=== PATIENT | male | born 1985 | race African-American/Black ===

== ENCOUNTER 2016-08-05 08:44 | Emergency (ER) | payer SELFPAY ==
[2016-08-05 08:49] VITALS: BP 144/91; PULSE 93; TEMP 97.6; BMI 24.3
[2016-08-05] MEDS ORDERED: IBUPROFEN 600 MG TABLET (FP) PO ONE ×2 (09:29→09:31)
--- NOTE | 2016-08-05 09:57 | PDOC ---
History of Present Illness - General Chief Complaint: Pain, Acute Stated Complaint: ARM INJURY Time Seen by Provider: 08/05/16 09:23 Past History - Past Medical History Allergies/Adverse Reactions: Allergies Allergy/AdvReac Type Severity Reaction Status Date / Time No Known Allergies Allergy Verified 08/05/16 08:47 Home Medications: Ambulatory Orders No Home Medications 09/17/11 Asthma: No Cardiac Disorders: No COPD: No Diabetes: No GI Disorders: No Disorders: No HTN: No Kidney Stones: No Suicide Attempt (Hx): No Seizures: No Other medical history: denies. - Surgical History Abdominal Surgery: No Appendectomy: No Cardiac Surgery: No Cholecystectomy: No Lung Surgery: No Neurologic Surgery: No Orthopedic Surgery: No - Reproductive History Testicular Surgery: No - Psycho/Social/Smoking Cessation Hx Anxiety: No Suicidal Ideation: No Smoking History: Current every day smoker Number of Cigarettes Smoked Daily: 10 Information on smoking cessation initiated: No 'Breaking Loose' booklet given: 09/16/11 Hx Alcohol Use: No Drug/Substance Use Hx: No Substance Use Type: None *Physical Exam - Vital Signs Last Vital Signs Temp Pulse Resp BP Pulse Ox 97.6 F 93 H 18 144/91 99 08/05/16 08:47 08/05/16 08:47 08/05/16 08:47 08/05/16 08:47 08/05/16 08:47 ED Treatment Course - Medications Given in the ED: ED Medications Discontinued Medications Generic Name Dose Route Start Last Admin Trade Name Binuq PRN Reason Stop Dose Admin Ibuprofen 600 mg 08/05/16 09:29 08/05/16 09:34 Motrin - PO 08/05/16 09:30 600 mg ONCE ONE Administration
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
== END 2016-08-05 11:07 | disposition home or self-care (01) ==
LOC: JERFT 08:44
DX: S42.401A Unspecified fracture of lower end of right humerus, initial encounter for closed fracture (principal); V18.0XXA Pedal cycle driver injured in noncollision transport accident in nontraffic accident, initial encounter; Y92.410 Unspecified street and highway as the place of occurrence of the external cause; Y93.55 Activity, bike riding; Y99.8 Other external cause status
CPT/HCPCS: 73060-TC-RT; 73070-TC-RT; 73090-TC-RT; 99281-25

== ENCOUNTER 2018-09-15 16:42 | Inpatient (IN) | payer OTHER ==
[2018-09-15 21:04] VITALS: BMI 27.6
--- NOTE | 2018-09-16 01:09 | HP ---
CIWA Score Nausea/Vomitin Muscle Tremors: 2 Anxiety: 2 Agitation: 1-Slight > Activity Paroxysmal Sweats: 1-Minimal Palms Moist Orientation: 0-Oriented Tacttile Disturbances: 1-Very Mild Itch/Numbness Auditory Disturbances: 1-Very Mild Visual Disturbances: 2-Mild Sensitivity Headache: 2-Mild CIWA-Ar Total Score: 14 - Admission Criteria OASAS Guidelines: Admission for Medically Managed Detox: Requires at least one of the followin. CIWA greater than 12 2. Seizures within the past 24 hours 3. Delirium tremens within the past 24 hours 4. Hallucinations within the past 24 hours 5. Acute intervention needed for co occurring medical disorder 6. Acute intervention needed for co occurring psychiatric disorder 7. Severe withdrawal that cannot be handled at a lower level of care (continued vomiting, continued diarrhea, abnormal vital signs) requiring intravenous medication and/or fluids 8. Admission ROS S - HPI Chief Complaint: DEPENDENT ON ETOH ONLY Allergies/Adverse Reactions: Allergies Allergy/AdvReac Type Severity Reaction Status Date / Time No Known Allergies Allergy Verified 09/15/18 21:00 History of Present Illness: THE PT. IS REQUESTING ADMISSION TO THE DETOX UNIT AND CAME FOR MEDICAL CLEARANCE - Ebola screening Have you traveled outside of the country in the last 21 days: No Have you had contact with anyone from an Ebola affected area: No Have you been sick,other than usual withdrawal symptoms: No Do you have a fever: No - Review of Systems Constitutional: See HPI, Malaise, Weakness EENT: reports: See HPI Respiratory: reports: See HPI Cardiac: reports: See HPI GI: reports: See HPI, Nausea, Abdominal cramping : reports: No Symptoms Reported, See HPI Musculoskeletal: reports: See HPI, Muscle Pain, Muscle Weakness Integumentary: reports: See HPI, Sweating Neuro: reports: See HPI, Headache, Tremors, Weakness Endocrine: reports: See HPI Hematology: reports: See HPI Psychiatric: reports: Judgement Intact, Orientated x3, Anxious, Depressed Patient History - Patient Medical History Hx Asthma: No Hx Chronic Obstructive Pulmonary Disease (COPD): No Hx Cardiac Disorders: No Hx Hypertension: No Hx Seizures: No Hx Diabetes: No Hx Gastrointestinal Disorders: No Hx Genitourinary Disorders: No Hx Sexually Transmitted Disorders: No Hx Renal Disease (ESRD): No Hx Human Immunodeficiency Virus (HIV): No Hx Hepatitis C: No Hx Depression: Yes (AND ANXIETY) Hx Suicide Attempt: No Hx Schizophrenia: No - Patient Surgical History Past Surgical History: No Hx Neurologic Surgery: No Hx Cataract Extraction: No Hx Cardiac Surgery: No Hx Lung Surgery: No Hx Breast Surgery: No Hx Breast Biopsy: No Hx Abdominal Surgery: No Hx Appendectomy: No Hx Cholecystectomy: No Hx Genitourinary Surgery: No Hx Orthopedic Surgery: No - Smoking Cessation Smoking history: Current every day smoker Aproximately how many cigarettes per day: 10 Hx Chewing Tobacco Use: No Initiated information on smoking cessation: Yes 'Breaking Loose' booklet given: 09/16/18 - Substance & Tx. History Hx Alcohol Use: Yes Hx Substance Use: No Substance Use Type: Alcohol Hx Substance Use Treatment: Yes - Substances abused Alcohol Substance route: Oral Frequency: Daily Amount used: 7 (24 oz) beers/day, 1/2 pint of vodka/day Age of first use: Date of last use: 09/15/18 Family Disease History - Family Disease History Family History: Denies Admission Physical Exam [facility] - Vital Signs Vital Signs: Vital Signs - 24 hr 09/15/18 21:01 Temperature 97.9 F Pulse Rate 94 H Respiratory 18 Rate Blood Pressure 144/92 - Physical General Appearance: Yes: No Apparent Distress, Nourished, Appropriately Dressed , Alcohol on Breath HEENTM: Yes: Hearing grossly Normal, Normocephalic, Normal Voice, ROBERTO CARLOS, Pharynx Normal Respiratory: Yes: Chest Non-Tender, Lungs Clear, Normal Breath Sounds, No Respiratory Distress, No Accessory Muscle Use Neck: Yes: No masses,lesions,Nodules, Supple, Trachea in good position Breast: Yes: Breast Exam Deferred, Axillae without masses Cardiology: Yes: Regular Rhythm, S1, S2, Tachycardia Abdominal: Yes: Normal Bowel Sounds, Non Tender, Protuberent Back: Yes: Normal Inspection Musculoskeletal: Yes: full range of Motion, Gait Steady, Pelvis Stable, Muscle Pain, Muscle weakness Extremities: Yes: Normal Capillary Refill, Normal Range of Motion, Non-Tender, Tremors Neurological: Yes: bobbin washer II-XII NML intact, Fully Oriented, Alert, Motor Strength 5/5, Normal Response, Depressed Affect Integumentary: Yes: Normal Color, Warm, Moist Lymphatic: Yes: Within Normal Limits - Diagnostic (1) EtOH dependence Current Visit: Yes Status: Chronic Qualifiers: Complication of substance-induced condition: uncomplicated (2) Anxiety and depression Current Visit: Yes Status: Chronic Cleared for Admission S - Detox or Rehab [facility] Level of Care: Medically Supervised Detox Regimen/Protocol: Librium Breathalyzer - Breathalyzer Breathalyzer: 0.025 Urine Drug Screen - Test Device Lot number: [id number] Expiration date: 05/16/20 - Control Is test valid?: Yes - Results Drug screen NEGATIVE: Yes Inpatient Rehab Admission - Rehab Decision to Admit Inpatient rehab admission?: No
[2018-09-16] MEDS ORDERED: chlordiazePOXIDE HCL 25 MG CAPSULE PO ONE (01:16)
[2018-09-16] MEDS ORDERED: hydrOXYzine PAMOATE 25 MG CAPSULE (FP) PO PRN (01:16)
[2018-09-16] MEDS ORDERED: MAG HYDROX/AL HYDROX/SIMETH 30 ML UNIT-DOSE CUP PO PRN (01:16)
[2018-09-16] MEDS ORDERED: METHOCARBAMOL 500 MG TABLET PO PRN (01:16)
[2018-09-16] MEDS ORDERED: BISMUTH SUBSALICYLATE 524 MG/30 ML UD PO PRN (01:16)
[2018-09-16] MEDS ORDERED: chlordiazePOXIDE HCL 10 MG CAPSULE PO PRN (01:16)
[2018-09-16] MEDS ORDERED: NICOTINE POLACRILEX 4 MG GUM BUC PRN (01:16)
[2018-09-16] MEDS ORDERED: MAGNESIUM CITRATE 300 ML BOTTLE PO PRN (01:16)
[2018-09-16] MEDS ORDERED: MAGNESIUM HYDROX 2400MG/30ML ORAL SUSPENSION 30 ML CUP PO PRN (01:16)
[2018-09-16] MEDS ORDERED: MELATONIN 5 MG TABLETS PO PRN (01:16)
[2018-09-16] MEDS ORDERED: MENTHOL/PHENOL 1 EACH UD MM PRN (01:16)
[2018-09-16] MEDS ORDERED: IBUPROFEN 400 MG TABLET (FP) PO PRN (01:16)
[2018-09-16] MEDS ORDERED: ACETAMINOPHEN 325 MG TABLET (FP) PO PRN ×2 (01:16)
[2018-09-16] MEDS: chlordiazePOXIDE HCL 25 MG CAPSULE PO SCH ×3 (06:23→22:28)
--- NOTE | 2018-09-16 10:43 | PN ---
S CIWA - CIWA Score Nausea/Vomitin-No Nausea/No Vomiting Muscle Tremors: 3 Anxiety: 3 Agitation: 3 Paroxysmal Sweats: 3 Orientation: 0-Oriented Tacttile Disturbances: 0-None Auditory Disturbances: 0-None Visual Disturbances: 0-None Headache: 0-None Present CIWA-Ar Total Score: 12 BHS Progress Note (SOAP) Subjective: tired sweats mild shakes interrupted sleep body aches Objective: 09/16/18 10:42 Vital Signs Temperature 97.4 F L 09/16/18 09:34 Pulse Rate 89 09/16/18 09:34 Respiratory Rate 18 09/16/18 09:34 Blood Pressure 104/58 L 09/16/18 09:34 O2 Sat by Pulse Oximetry (%) labs pending aaox3 lying in bed no acute distress Assessment: 09/16/18 10:42 withdrawal sx Plan: continue detox increase fluids pending lab results
[2018-09-16] MEDS: PRENATAL VITAMINS W/ FOLIC ACID TABLET (FP) PO SCH (10:46)
[2018-09-16] MEDS: NICOTINE 21 MG/24 HOURS TOPICAL PATCH TD SCH (10:46)
[2018-09-16] MEDS: THIAMINE HCL 100 MG TABLET (FP) PO SCH (22:28)
[2018-09-17] MEDS: chlordiazePOXIDE 5 MG CAPSULE PO SCH ×3 (06:40→22:51)
--- NOTE | 2018-09-17 10:12 | PN ---
[facility] CIWA - CIWA Score Nausea/Vomitin-No Nausea/No Vomiting Muscle Tremors: 3 Anxiety: 2 Agitation: 3 Paroxysmal Sweats: 2 Orientation: 0-Oriented Tacttile Disturbances: 0-None Auditory Disturbances: 0-None Visual Disturbances: 0-None Headache: 0-None Present CIWA-Ar Total Score: 10 S Progress Note (SOAP) Subjective: tired irritable I'm ok Objective: 09/17/18 10:11 Vital Signs Temperature 98.3 F 09/17/18 09:33 Pulse Rate 77 09/17/18 09:33 Respiratory Rate 17 09/17/18 09:33 Blood Pressure 108/73 09/17/18 09:33 O2 Sat by Pulse Oximetry (%) labs pending aaox3 ambulating no acute distress Assessment: 09/17/18 10:11 mild withdrawal sx Plan: continue detox increase fluids
[2018-09-17 11:05] LABS: HEMATOCRIT 47.5 % (35.4-49); HEMOGLOBIN 16.1 GM/dL (11.7-16.9); MCHC 33.8 g/dl (32.0-35.9); MEAN CELL VOLUME 94.7 fl (80-96); MEAN PLT VOLUME 8.7 fl (7.5-11.1); PLATELET COUNT 286 K/MM3 (134-434); RBC 5.02 M/mm3 (4.00-5.60); RDW 13.9 % (11.9-15.9); WHITE BLOOD COUNT 5.2 K/mm3 (4.0-10.0)
[2018-09-17 11:06] LABS: ALBUMIN 3.8 g/dl (3.4-5.0); BILIRUBIN,TOTAL 0.9 mg/dL (0.2-1); CALCIUM 9.2 mg/dL (8.5-10.1); CREATININE 1.1 mg/dL (0.55-1.3); POTASSIUM 4.3 mmol/L (3.5-5.1); TOT PROT 7.1 g/dl (6.4-8.2)
[2018-09-17] MEDS: NICOTINE 21 MG/24 HOURS TOPICAL PATCH TD SCH (11:23)
[2018-09-17] MEDS: PRENATAL VITAMINS W/ FOLIC ACID TABLET (FP) PO SCH (11:23)
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
[2018-09-17] MEDS: THIAMINE HCL 100 MG TABLET (FP) PO SCH (22:51)
[2018-09-18] MEDS ORDERED: chlordiazePOXIDE HCL 10 MG CAPSULE PO PRN (05:00)
[2018-09-18] MEDS: chlordiazePOXIDE HCL 10 MG CAPSULE PO SCH ×3 (06:54→23:25)
--- NOTE | 2018-09-18 10:03 | PN ---
S CIWA - CIWA Score Nausea/Vomitin-No Nausea/No Vomiting Muscle Tremors: 1-None Visible, but [place] Anxiety: 1-Mildly Anxious Agitation: 2 Paroxysmal Sweats: No Perspiration Orientation: 0-Oriented Tacttile Disturbances: 0-None Auditory Disturbances: 0-None Visual Disturbances: 0-None Headache: 0-None Present CIWA-Ar Total Score: 4 BHS Progress Note (SOAP) Subjective: sweats Objective: 09/18/18 10:02 Vital Signs Temperature 98.0 F 09/18/18 09:26 Pulse Rate 97 H 09/18/18 09:26 Respiratory Rate 18 09/18/18 09:26 Blood Pressure 126/87 09/18/18 09:26 O2 Sat by Pulse Oximetry (%) aaox3 ambulating no acute distress Assessment: 09/18/18 10:02 mild withdrawal sx Plan: continue detox increase fluids d/c in am
[2018-09-18] MEDS: PRENATAL VITAMINS W/ FOLIC ACID TABLET (FP) PO SCH (11:13)
[2018-09-18] MEDS: NICOTINE 21 MG/24 HOURS TOPICAL PATCH TD SCH (11:13)
[2018-09-18] MEDS: THIAMINE HCL 100 MG TABLET (FP) PO SCH (23:25)
[2018-09-19] MEDS: chlordiazePOXIDE HCL 10 MG CAPSULE PO SCH (07:26)
[2018-09-19 09:22] VITALS: TEMP 98.9
--- NOTE | 2018-09-19 09:48 | DS ---
[facility] Detox Discharge Summary Admission Date: 09/16/18 Discharge Date: 09/19/18 - History Present History: Alcohol Dependence - Physical Exam Results Vital Signs: Vital Signs Temperature 98.9 F 09/19/18 09:21 Pulse Rate 79 09/19/18 09:21 Respiratory Rate 18 09/19/18 09:21 Blood Pressure 114/62 09/19/18 09:21 O2 Sat by Pulse Oximetry (%) - Treatment Hospital Course: Detox Protocol Followed, Detoxed Safely, Responded well, Discharged Condition Good, Rehab Referral Accepted - Diagnosis (1) Alcohol dependence with withdrawal Current Visit: Yes Status: Chronic Qualifiers: Complication of substance-induced condition: uncomplicated Qualified Code(s ): F10.230 - Alcohol dependence with withdrawal, uncomplicated (2) Alcohol-induced mood disorder Current Visit: Yes Status: Acute (3) Alcohol-induced sleep disorder Current Visit: Yes Status: Acute (4) Anxiety and depression Current Visit: Yes Status: Chronic (5) Depressive disorder Current Visit: Yes Status: Chronic (6) Nicotine dependence Current Visit: Yes Status: Chronic Qualifiers: Nicotine product type: cigarettes Substance use status: uncomplicated Qualified Code(s): F17.210 - Nicotine dependence, cigarettes, uncomplicated (7) MDD (major depressive disorder) Current Visit: Yes Status: Ruled-out (8) Elbow fracture, right Current Visit: No Status: Acute Qualifiers: Encounter type: initial encounter Fracture type: closed Qualified Code(s) : S42.401A - Unspecified fracture of lower end of right humerus, initial encounter for closed fracture - AMA Did Patient Leave Against Medical Advice: No ([facility])
[2018-09-19] MEDS: PRENATAL VITAMINS W/ FOLIC ACID TABLET (FP) PO SCH (11:08)
[2018-09-19] MEDS: NICOTINE 21 MG/24 HOURS TOPICAL PATCH TD SCH (11:08)
[2018-09-19 13:56] VITALS: BP 112/64; PULSE 81
== END 2018-09-19 14:58 | disposition other institution (70) | DRG 775 ==
LOC: YASAS 16:42 → Y6N 09-16 00:57
PROVIDERS: ADMIT Surgery; ATTEND Surgery
PROC: HZ2ZZZZ Detoxification Services for Substance Abuse Treatment (ICD-10-PCS; principal; 2018-09-16)
DX: F10.230 Alcohol dependence with withdrawal, uncomplicated (principal); F17.210 Nicotine dependence, cigarettes, uncomplicated; F10.24 Alcohol dependence with alcohol-induced mood disorder; F10.282 Alcohol dependence with alcohol-induced sleep disorder; F41.8 Other specified anxiety disorders; F32.9 Major depressive disorder, single episode, unspecified; Z59.0 Homelessness
CPT/HCPCS: 36415; 80053; 85027; 86593

== ENCOUNTER 2018-09-19 15:02 | Inpatient (IN) | payer OTHER ==
[2018-09-19] MEDS ORDERED: IBUPROFEN 400 MG TABLET (FP) PO PRN (15:29)
[2018-09-19] MEDS ORDERED: MAGNESIUM CITRATE 300 ML BOTTLE PO PRN (15:29)
[2018-09-19] MEDS ORDERED: MAGNESIUM HYDROX 2400MG/30ML ORAL SUSPENSION 30 ML CUP PO PRN (15:29)
[2018-09-19] MEDS ORDERED: LOPERAMIDE HCL 2 MG CAPSULE PO PRN (15:29)
[2018-09-19] MEDS ORDERED: P-EPHED 60MG/TRIPROLIDI 2.5MG TABLET PO PRN (15:29)
[2018-09-19] MEDS ORDERED: MAG HYDROX/AL HYDROX/SIMETH 30 ML UNIT-DOSE CUP PO PRN (15:29)
[2018-09-19] MEDS ORDERED: ACETAMINOPHEN 325 MG TABLET (FP) PO PRN (15:29)
[2018-09-19] MEDS ORDERED: MENTHOL/PHENOL 1 EACH UD MM PRN (15:29)
[2018-09-19] MEDS ORDERED: guaiFENesin 200 MG/10 ML 10 ML UNIT-DOSE CUPS PO PRN (15:29)
--- NOTE | 2018-09-19 15:29 | HP ---
[facility] Rehab Assess/Revision - Admission History Ad[facility] to [facility]hab [facility] - Findings Detox History & Physical reviewed: Yes Concur with findings: Yes Inpatient Rehab Admission - Rehab Decision to Admit Inpatient rehab admission?: Yes - Initial Determination Are CD services needed?: Yes Free of communicable disease: Yes Not in need of hospitalization: Yes - Rehab Admission Criteria Previous failed treatment: Yes Poor recovery environment: Yes Comorbidities: Yes Lacks judgement: Yes Patient is meeting Inpatient Rehab admission criteria:: Yes
[2018-09-19] MEDS: THIAMINE HCL 100 MG TABLET (FP) PO SCH (21:21)
[2018-09-19] MEDS: NICOTINE POLACRILEX 4 MG GUM BUC PRN (21:22)
[2018-09-20] MEDS: NICOTINE POLACRILEX 4 MG GUM BUC PRN ×4 (08:32→21:31)
[2018-09-20] MEDS: PRENATAL VITAMINS W/ FOLIC ACID TABLET (FP) PO SCH (09:56)
[2018-09-20] MEDS: NICOTINE 21 MG/24 HOURS TOPICAL PATCH TD SCH (09:57)
[2018-09-20] MEDS: THIAMINE HCL 100 MG TABLET (FP) PO SCH (21:31)
[2018-09-21] MEDS: NICOTINE POLACRILEX 4 MG GUM BUC PRN ×3 (06:29→21:16)
[2018-09-21] MEDS: PRENATAL VITAMINS W/ FOLIC ACID TABLET (FP) PO SCH (09:47)
[2018-09-21] MEDS: NICOTINE 21 MG/24 HOURS TOPICAL PATCH TD SCH (09:47)
[2018-09-21] MEDS: THIAMINE HCL 100 MG TABLET (FP) PO SCH (21:16)
[2018-09-22] MEDS: NICOTINE POLACRILEX 4 MG GUM BUC PRN ×4 (06:17→21:15)
[2018-09-22] MEDS: NICOTINE 21 MG/24 HOURS TOPICAL PATCH TD SCH (10:05)
[2018-09-22] MEDS: PRENATAL VITAMINS W/ FOLIC ACID TABLET (FP) PO SCH (10:05)
[2018-09-22] MEDS: MELATONIN 5 MG TABLETS PO PRN (21:15)
[2018-09-22] MEDS: THIAMINE HCL 100 MG TABLET (FP) PO SCH (21:15)
[2018-09-23] MEDS: NICOTINE POLACRILEX 4 MG GUM BUC PRN ×3 (06:19→21:25)
[2018-09-23] MEDS: hydrOXYzine PAMOATE 50 MG CAPSULE (FP) PO PRN ×2 (10:15→21:25)
[2018-09-23] MEDS: PRENATAL VITAMINS W/ FOLIC ACID TABLET (FP) PO SCH (10:15)
[2018-09-23] MEDS: NICOTINE 21 MG/24 HOURS TOPICAL PATCH TD SCH (10:16)
[2018-09-23] MEDS: THIAMINE HCL 100 MG TABLET (FP) PO SCH (21:24)
[2018-09-24] MEDS: hydrOXYzine PAMOATE 50 MG CAPSULE (FP) PO PRN ×3 (06:43→21:16)
[2018-09-24] MEDS: NICOTINE POLACRILEX 4 MG GUM BUC PRN ×3 (06:45→19:08)
[2018-09-24] MEDS: NICOTINE 21 MG/24 HOURS TOPICAL PATCH TD SCH (09:57)
[2018-09-24] MEDS: PRENATAL VITAMINS W/ FOLIC ACID TABLET (FP) PO SCH (09:57)
[2018-09-24] MEDS: MELATONIN 5 MG TABLETS PO PRN (21:16)
[2018-09-24] MEDS: THIAMINE HCL 100 MG TABLET (FP) PO SCH (21:16)
[2018-09-25 00:03] VITALS: BP 158/97; PULSE 101; TEMP 98.2
== END 2018-09-24 22:18 | disposition left against medical advice (07) | DRG 770 ==
LOC: YASAS 15:02 → Y5N 15:03
PROVIDERS: ADMIT Neuromusculoskeletal Medicine & OMM; ATTEND Neuromusculoskeletal Medicine & OMM
PROC: HZ42ZZZ Group Counseling for Substance Abuse Treatment, Cognitive-Behavioral (ICD-10-PCS; principal; 2018-09-19)
DX: F10.20 Alcohol dependence, uncomplicated (principal); F17.210 Nicotine dependence, cigarettes, uncomplicated; F10.24 Alcohol dependence with alcohol-induced mood disorder; F10.282 Alcohol dependence with alcohol-induced sleep disorder; F41.8 Other specified anxiety disorders; F32.9 Major depressive disorder, single episode, unspecified; Z59.0 Homelessness

== ENCOUNTER 2018-10-18 22:16 | Inpatient (IN) | payer OTHER ==
[2018-10-18 22:48] VITALS: BMI 27.4
--- NOTE | 2018-10-18 23:59 | HP ---
CIWA Score Nausea/Vomitin Muscle Tremors: 4-Moderate,w/Arms Extend Anxiety: 4-Mod. Anxious/Guarded Agitation: 4-Moderately Restless Paroxysmal Sweats: 2 Orientation: 0-Oriented Tacttile Disturbances: 0-None Auditory Disturbances: 0-None Visual Disturbances: 0-None Headache: 0-None Present CIWA-Ar Total Score: 16 - Admission Criteria [facility]AS Guidelines: Admission for Medically Managed Detox: Requires at least one of the followin. CIWA greater than 12 2. Seizures within the past 24 hours 3. Delirium tremens within the past 24 hours 4. Hallucinations within the past 24 hours 5. Acute intervention needed for co occurring medical disorder 6. Acute intervention needed for co occurring psychiatric disorder 7. Severe withdrawal that cannot be handled at a lower level of care (continued vomiting, continued diarrhea, abnormal vital signs) requiring intravenous medication and/or fluids 8. Admission ROS [facility] Chief Complaint: Alcohol withdrawal symptoms Allergies/Adverse Reactions: Allergies Allergy/AdvReac Type Severity Reaction Status Date / Time No Known Allergies Allergy Verified 10/18/18 22:39 History of Present Illness: 33 years old male with 11 years history of alcohol dependence is seeking admission to detox. Patient has been in previous detox, last at [facility]. He reports history of depression, seizure and anxiety. Denies suicide attempt / ideation at this time - Ebola screening Have you traveled outside of the country in the last 21 days: No (N) Have you had contact with anyone from an Ebola affected area: No Do you have a fever: No - Review of Systems Constitutional: Chills, Loss of Appetite, Malaise, Night Sweats, Changes in sleep EENT: reports: No Symptoms Reported Respiratory: reports: No Symptoms reported Cardiac: reports: No Symptoms Reported GI: reports: Poor Appetite, Poor Fluid Intake, Abdominal cramping : reports: No Symptoms Reported Musculoskeletal: reports: No Symptoms Reported Integumentary: reports: Dryness, Flushing Neuro: reports: Tremors Endocrine: reports: No Symptoms Reported Hematology: reports: No Symptoms Reported Psychiatric: reports: Orientated x3, Anxious, Depressed Other Systems: Reviewed and Negative Patient History - Patient Medical History Hx Anemia: No Hx Asthma: No Hx Chronic Obstructive Pulmonary Disease (COPD): No Hx Cancer: No Hx Cardiac Disorders: No Hx Congestive Heart Failure: No Hx Hypertension: No Hx Hypercholesterolemia: No Hx Pacemaker: No HX Cerebrovascular Accident: No Hx Seizures: Yes (Not on medication) Hx Diabetes: No Hx Gastrointestinal Disorders: No Hx Liver Disease: No Hx Genitourinary Disorders: No Hx Sexually Transmitted Disorders: No Hx Renal Disease (ESRD): No Hx Thyroid Disease: No Hx Human Immunodeficiency Virus (HIV): No (Negative 2019) Hx Hepatitis C: No Hx Depression: Yes (Wellbutrin) Hx Suicide Attempt: No (Denies suicidal ideation at this time) Hx Bipolar Disorder: No Hx Schizophrenia: No Other Medical History: Anxiety - Celexa - Patient Surgical History Past Surgical History: No Hx Neurologic Surgery: No Hx Cataract Extraction: No Hx Cardiac Surgery: No Hx Lung Surgery: No Hx Abdominal Surgery: No Hx Appendectomy: No Hx Cholecystectomy: No Hx Genitourinary Surgery: No Hx Orthopedic Surgery: No Anesthesia Reaction: No - PPD History Previous Implant?: Yes Documented Results: Negative w/proof Implanted On Prior [facility] Admission?: Yes Date: 09/18/18 Results: 0mm PPD to be Administered?: No - Reproductive History Patient is a Female of Child Bearing Age (11 -55 yrs old): No (male) - Smoking Cessation Smoking history: Current every day smoker Have you smoked in the past 12 months: Yes Aproximately how many cigarettes per day: 10 Hx Chewing Tobacco Use: No Initiated information on smoking cessation: Yes 'Breaking Loose' booklet given: 10/19/18 - Substance & Tx. History Hx Alcohol Use: Yes Hx Substance Use: No Substance Use Type: Alcohol Hx Substance Use Treatment: Yes ([facility]) - Substances abused Alcohol Substance route: Oral Frequency: Daily Amount used: 7 (24 oz) beers/day, 1/2 pint of vodka/day Age of first use: 21 Date of last use: 10/18/18 Family Disease History - Family Disease History Family History: Denies Admission Physical Exam BHS - Vital Signs Vital Signs: Vital Signs - 24 hr 10/18/18 22:39 Temperature 98.4 F Pulse Rate 90 Respiratory 18 Rate Blood Pressure 113/59 L - Physical General Appearance: Yes: Moderate Distress, Anxious HEENTM: Yes: Within Normal Limits Respiratory: Yes: Within Normal Limits, Lungs Clear, Normal Breath Sounds Neck: Yes: Supple Breast: Yes: Breast Exam Deferred Cardiology: Yes: Tachycardia Abdominal: Yes: Normal Bowel Sounds Genitourinary: Yes: Within Normal Limits Back: Yes: Normal Inspection Musculoskeletal: Yes: Within Normal Limits Extremities: Yes: Tremors Integumentary: Yes: Warm Lymphatic: Yes: Within Normal Limits - Diagnostic (1) Anxiety Current Visit: Yes Status: Chronic (2) Depression Current Visit: Yes Status: Chronic Qualifiers: Depression Type: unspecified Qualified Code(s): F32.9 - Major depressive disorder, single episode, unspecified (3) Seizure Current Visit: Yes Status: Acute (4) Alcohol dependence with withdrawal Current Visit: Yes Status: Acute Qualifiers: Complication of substance-induced condition: uncomplicated Qualified Code(s ): F10.230 - Alcohol dependence with withdrawal, uncomplicated (5) Nicotine dependence Current Visit: Yes Status: Chronic Qualifiers: Nicotine product type: cigarettes Substance use status: uncomplicated Qualified Code(s): F17.210 - Nicotine dependence, cigarettes, uncomplicated Cleared for Admission [facility] - Detox or Rehab [facility] Level of Care: Medically Managed Detox Regimen/Protocol: Librium Breathalyzer - Breathalyzer Breathalyzer: 0.057 Urine Drug Screen - Test Device Lot number: [id number] Expiration date: 08/12/20 - Control Is test valid?: Yes - Results Drug screen NEGATIVE: No Urine drug screen results: BZO-Benzodiazepines Inpatient Rehab Admission - Rehab Decision to Admit Inpatient rehab admission?: No
[2018-10-19] MEDS ORDERED: ACETAMINOPHEN 325 MG TABLET (FP) PO PRN ×2 (00:11)
[2018-10-19] MEDS ORDERED: hydrOXYzine PAMOATE 25 MG CAPSULE (FP) PO PRN (00:11)
[2018-10-19] MEDS ORDERED: MENTHOL/PHENOL 1 EACH UD MM PRN (00:11)
[2018-10-19] MEDS ORDERED: METHOCARBAMOL 500 MG TABLET PO PRN (00:11)
[2018-10-19] MEDS ORDERED: MAG HYDROX/AL HYDROX/SIMETH 30 ML UNIT-DOSE CUP PO PRN (00:11)
[2018-10-19] MEDS ORDERED: BISMUTH SUBSALICYLATE 524 MG/30 ML UD PO PRN (00:11)
[2018-10-19] MEDS ORDERED: MAGNESIUM CITRATE 300 ML BOTTLE PO PRN (00:11)
[2018-10-19] MEDS ORDERED: IBUPROFEN 400 MG TABLET (FP) PO PRN (00:11)
[2018-10-19] MEDS ORDERED: MAGNESIUM HYDROX 2400MG/30ML ORAL SUSPENSION 30 ML CUP PO PRN (00:11)
[2018-10-19] MEDS: chlordiazePOXIDE HCL 25 MG CAPSULE PO PRN ×2 (01:05→10:24)
--- NOTE | 2018-10-19 09:31 | PN ---
S CIWA - CIWA Score Nausea/Vomitin-Mild Nausea/No Vomiting Muscle Tremors: 3 Anxiety: 4-Mod. Anxious/Guarded Agitation: 3 Paroxysmal Sweats: No Perspiration Orientation: 0-Oriented Tacttile Disturbances: 0-None Auditory Disturbances: 0-None Visual Disturbances: 0-None Headache: 2-Mild CIWA-Ar Total Score: 13 BHS Progress Note (SOAP) Subjective: doing well with librium detox protocol tolerate breakfast well tremor anxiety Objective: 10/19/18 09:32 Vital Signs Temperature 97.8 F 10/19/18 06:40 Pulse Rate 93 H 10/19/18 06:40 Respiratory Rate 18 10/19/18 06:40 Blood Pressure 113/61 10/19/18 06:40 O2 Sat by Pulse Oximetry (%) 10/19/18 09:32 lab ordered for 10/30/18 Assessment: 10/19/18 09:32 alcohol withdrawal sx Plan: continue alcohol detox
[2018-10-19] MEDS: PRENATAL VITAMINS W/ FOLIC ACID TABLET (FP) PO SCH (10:24)
[2018-10-19] MEDS: NICOTINE 14 MG/24 HOURS TOPICAL PATCH TD SCH (10:24)
[2018-10-19] MEDS: NICOTINE POLACRILEX 2 MG GUM BUC PRN ×2 (10:26→22:30)
--- NOTE | 2018-10-19 13:50 | CONSULT ---
[facility] Psychiatric Consult - Data Date of interview: 10/19/18 Admission source: [facility] Identifying data: Patient is a 33 year old single male, without children, employed " on and off", residing in a assisted, and is supported by [facility]. This is one of multiple admissions for patient. Patient admitted to for alcohol dependence. Substance Abuse History: - Smoking Cessation. Smoking history: Current every day smoker. Have you smoked in the past 12 months: Yes. Aproximately how many cigarettes per day: 10. Hx Chewing Tobacco Use: No. Initiated information on smoking cessation: Yes. 'Breaking Loose' booklet given: 10/19/18. - Substance & Tx. History. Hx Alcohol Use: Yes. Hx Substance Use: No. Substance Use Type : Alcohol. Hx Substance Use Treatment: Yes ([facility]). - Substances abused. Alcohol. Substance route: Oral. Frequency: Daily. Amount used: 7 (24 oz) beers/day, 1/2 pint of vodka/day. Age of first use: 21. Date of last use: 10/01 Medical History: Seizures. Psychiatric History: Patient reports past history of four psychiatric hospitalizations most recently in May of 2018 at [facility] for depression and anxiety. He reports past history of accepting Wellbutrin and Celexa but is noncompliant with his medication regiman. He denies past history of outpatient care and suicide attempt. States he only see's a mental health provider when admitted to detox/rehab facility or when admitted to a psychiatric unit. At present, patient presents as a fatigue and sad. He denies thoughts or urges to hurt self or others. Patient requesting additional medication for insomnia. Physical/Sexual Abuse/Trauma History: denies. Mental Status Exam - Mental Status Exam Alert and Oriented to: Time, Place, Person Cognitive Function: Good Patient Appearance: Well Groomed Mood: Sad Affect: Mood Congruent Patient Behavior: Fatigued, Cooperative Speech Pattern: Clear Voice Loudness: Moderately Soft/Quiet Thought Process: Intact, Goal Oriented Thought Disorder: Not Present Hallucinations: Denies Suicidal Ideation: Denies Homicidal Ideation: Denies Insight/Judgement: Poor Sleep: Poorly Appetite: Fair Muscle strength/Tone: Normal Gait/Station: Normal Psychiatric Findings - Problem List ([place] 1, 2,3) (1) Alcohol dependence with withdrawal Current Visit: Yes Status: Acute Qualifiers: Complication of substance-induced condition: uncomplicated Qualified Code(s ): F10.230 - Alcohol dependence with withdrawal, uncomplicated (2) Nicotine dependence Current Visit: Yes Status: Chronic Qualifiers: Nicotine product type: cigarettes Substance use status: uncomplicated Qualified Code(s): F17.210 - Nicotine dependence, cigarettes, uncomplicated (3) Alcohol-induced mood disorder Current Visit: Yes Status: Acute (4) Alcohol-induced sleep disorder Current Visit: Yes Status: Acute (5) Depressive disorder Current Visit: No Status: Chronic - Initial Treatment Plan Initial Treatment Plan: Psychoeducation provided. Detoxification in progress. Will order Seroquel 50mg for insomnia. Benefits and side effects discussed. Verbal consent given.
[2018-10-19] MEDS: THIAMINE HCL 100 MG TABLET (FP) PO SCH (22:29)
[2018-10-19] MEDS: QUEtiapine FUMARATE 50 MG TABLET PO SCH (22:29)
[2018-10-19] MEDS: chlordiazePOXIDE HCL 25 MG CAPSULE PO SCH (22:29)
[2018-10-19] MEDS: MELATONIN 5 MG TABLETS PO PRN (22:30)
[2018-10-20] MEDS: chlordiazePOXIDE HCL 25 MG CAPSULE PO SCH ×4 (06:56→22:35)
[2018-10-20 09:56] LABS: ALBUMIN 3.5 g/dl (3.4-5.0); BILIRUBIN,TOTAL 0.6 mg/dL (0.2-1); BLOOD UREA NITROGEN 10.9 mg/dL (7-18); CALCIUM 8.6 mg/dL (8.5-10.1); CREATININE 1.1 mg/dL (0.55-1.3); POTASSIUM 4.1 mmol/L (3.5-5.1); TOT PROT 6.6 g/dl (6.4-8.2)
[2018-10-20 10:12] LABS: HEMATOCRIT 46.5 % (35.4-49); HEMOGLOBIN 15.5 GM/dL (11.7-16.9); MCH 31.5 pg (25.7-33.7); MCHC 33.4 g/dl (32.0-35.9); MEAN CELL VOLUME 94.2 fl (80-96); MEAN PLT VOLUME 8.6 fl (7.5-11.1); PLATELET COUNT 247 K/MM3 (134-434); RBC 4.93 M/mm3 (4.00-5.60); RDW 13.1 % (11.9-15.9); WHITE BLOOD COUNT 6.3 K/mm3 (4.0-10.0)
[2018-10-20] MEDS: PRENATAL VITAMINS W/ FOLIC ACID TABLET (FP) PO SCH (10:23)
[2018-10-20] MEDS: NICOTINE POLACRILEX 2 MG GUM BUC PRN ×3 (10:24→22:38)
[2018-10-20] MEDS: NICOTINE 14 MG/24 HOURS TOPICAL PATCH TD SCH (10:28)
--- NOTE | 2018-10-20 10:39 | PN ---
[facility] CIWA - CIWA Score Nausea/Vomitin-Mild Nausea/No Vomiting Muscle Tremors: 3 Anxiety: 2 Agitation: 2 Paroxysmal Sweats: 1-Minimal Palms Moist Orientation: 1-Uncertain about Date Tacttile Disturbances: 1-Very Mild Itch/Numbness Auditory Disturbances: 0-None Visual Disturbances: 0-None Headache: 0-None Present CIWA-Ar Total Score: 11 S Progress Note (SOAP) Subjective: less tremor mild anxious doing well with librium detox protocol hesitating to discuss aftercare Objective: 10/20/18 10:42 Vital Signs Temperature 98.2 F 10/20/18 09:10 Pulse Rate 80 10/20/18 09:10 Respiratory Rate 18 10/20/18 09:10 Blood Pressure 110/67 10/20/18 09:10 O2 Sat by Pulse Oximetry (%) Laboratory Last Values WBC 6.3 K/mm3 (4.0-10.0) 10/20/18 08:00 RBC 4.93 M/mm3 (4.00-5.60) 10/20/18 08:00 Hgb 15.5 GM/dL (11.7-16.9) 10/20/18 08:00 Hct 46.5 % (35.4-49) 10/20/18 08:00 MCV 94.2 fl (80-96) 10/20/18 08:00 MCH 31.5 pg (25.7-33.7) 10/20/18 08:00 MCHC 33.4 g/dl (32.0-35.9) 10/20/18 08:00 RDW 13.1 % (11.9-15.9) 10/20/18 08:00 Plt Count 247 K/MM3 (134-434) 10/20/18 08:00 MPV 8.6 fl (7.5-11.1) 10/20/18 08:00 Sodium 138 mmol/L (136-145) 10/20/18 08:00 Potassium 4.1 mmol/L (3.5-5.1) 10/20/18 08:00 Chloride 104 mmol/L (98-107) 10/20/18 08:00 Carbon Dioxide 29 mmol/L (21-32) 10/20/18 08:00 Anion Gap 5 MMOL/L (8-16) L 10/20/18 08:00 BUN 10.9 mg/dL (7-18) 10/20/18 08:00 Creatinine 1.1 mg/dL (0.55-1.3) 10/20/18 08:00 Est GFR (CKD-EPI)AfAm 103.13 10/20/18 08:00 Est GFR (CKD-EPI)NonAf 88.98 10/20/18 08:00 Random Glucose 99 mg/dL (74-106) 10/20/18 08:00 Calcium 8.6 mg/dL (8.5-10.1) 10/20/18 08:00 Total Bilirubin 0.6 mg/dL (0.2-1) 10/20/18 08:00 AST 19 U/L (15-37) 10/20/18 08:00 ALT 20 U/L (13-61) 10/20/18 08:00 Alkaline Phosphatase 122 U/L (45-117) H 10/20/18 08:00 Total Protein 6.6 g/dl (6.4-8.2) 10/20/18 08:00 Albumin 3.5 g/dl (3.4-5.0) 10/20/18 08:00 RPR Titer Nonreactive (NONREACTIVE) 10/20/18 08:00 lab noted Assessment: 10/20/18 10:42 alcohol withdrawal sx Plan: continue alcohol detox
[2018-10-20] MEDS: THIAMINE HCL 100 MG TABLET (FP) PO SCH (22:35)
[2018-10-20] MEDS: QUEtiapine FUMARATE 50 MG TABLET PO SCH (22:35)
[2018-10-20] MEDS: MELATONIN 5 MG TABLETS PO PRN (22:36)
[2018-10-21] MEDS: chlordiazePOXIDE HCL 25 MG CAPSULE PO SCH ×4 (07:21→22:27)
[2018-10-21] MEDS: PRENATAL VITAMINS W/ FOLIC ACID TABLET (FP) PO SCH (10:29)
[2018-10-21] MEDS: NICOTINE 14 MG/24 HOURS TOPICAL PATCH TD SCH (10:29)
[2018-10-21] MEDS: NICOTINE POLACRILEX 2 MG GUM BUC PRN ×3 (10:30→22:28)
--- NOTE | 2018-10-21 14:47 | PN ---
S CIWA - CIWA Score Nausea/Vomitin-Mild Nausea/No Vomiting Muscle Tremors: 2 Anxiety: 2 Agitation: 2 Paroxysmal Sweats: 1-Minimal Palms Moist Orientation: 0-Oriented Tacttile Disturbances: 0-None Auditory Disturbances: 0-None Visual Disturbances: 0-None Headache: 1-Very Mild CIWA-Ar Total Score: 9 S Progress Note (SOAP) Subjective: ambulating on hallway social with peers in day room discuss aftercare with staff patient prefers inpatient rehab Objective: 10/21/18 14:48 Vital Signs Temperature 98.5 F 10/21/18 13:05 Pulse Rate 74 10/21/18 13:05 Respiratory Rate 16 10/21/18 13:05 Blood Pressure 105/67 10/21/18 13:05 O2 Sat by Pulse Oximetry (%) Laboratory Last Values WBC 6.3 K/mm3 (4.0-10.0) 10/20/18 08:00 RBC 4.93 M/mm3 (4.00-5.60) 10/20/18 08:00 Hgb 15.5 GM/dL (11.7-16.9) 10/20/18 08:00 Hct 46.5 % (35.4-49) 10/20/18 08:00 MCV 94.2 fl (80-96) 10/20/18 08:00 MCH 31.5 pg (25.7-33.7) 10/20/18 08:00 MCHC 33.4 g/dl (32.0-35.9) 10/20/18 08:00 RDW 13.1 % (11.9-15.9) 10/20/18 08:00 Plt Count 247 K/MM3 (134-434) 10/20/18 08:00 MPV 8.6 fl (7.5-11.1) 10/20/18 08:00 Sodium 138 mmol/L (136-145) 10/20/18 08:00 Potassium 4.1 mmol/L (3.5-5.1) 10/20/18 08:00 Chloride 104 mmol/L (98-107) 10/20/18 08:00 Carbon Dioxide 29 mmol/L (21-32) 10/20/18 08:00 Anion Gap 5 MMOL/L (8-16) L 10/20/18 08:00 BUN 10.9 mg/dL (7-18) 10/20/18 08:00 Creatinine 1.1 mg/dL (0.55-1.3) 10/20/18 08:00 Est GFR (CKD-EPI)AfAm 103.13 10/20/18 08:00 Est GFR (CKD-EPI)NonAf 88.98 10/20/18 08:00 Random Glucose 99 mg/dL (74-106) 10/20/18 08:00 Calcium 8.6 mg/dL (8.5-10.1) 10/20/18 08:00 Total Bilirubin 0.6 mg/dL (0.2-1) 10/20/18 08:00 AST 19 U/L (15-37) 10/20/18 08:00 ALT 20 U/L (13-61) 10/20/18 08:00 Alkaline Phosphatase 122 U/L (45-117) H 10/20/18 08:00 Total Protein 6.6 g/dl (6.4-8.2) 10/20/18 08:00 Albumin 3.5 g/dl (3.4-5.0) 10/20/18 08:00 RPR Titer Nonreactive (NONREACTIVE) 10/20/18 08:00 lab noted Assessment: 10/21/18 14:49 alcohol withdrawal sx Plan: continue alcohol detox
[2018-10-21] MEDS: MELATONIN 5 MG TABLETS PO PRN (22:27)
[2018-10-21] MEDS: QUEtiapine FUMARATE 50 MG TABLET PO SCH (22:27)
[2018-10-21] MEDS: THIAMINE HCL 100 MG TABLET (FP) PO SCH (22:27)
[2018-10-22] MEDS ORDERED: chlordiazePOXIDE HCL 10 MG CAPSULE PO PRN
[2018-10-22] MEDS: chlordiazePOXIDE HCL 10 MG CAPSULE PO SCH ×4 (06:04→22:13)
[2018-10-22] MEDS: PRENATAL VITAMINS W/ FOLIC ACID TABLET (FP) PO SCH (10:34)
[2018-10-22] MEDS: NICOTINE 14 MG/24 HOURS TOPICAL PATCH TD SCH (10:35)
[2018-10-22] MEDS: NICOTINE POLACRILEX 2 MG GUM BUC PRN ×3 (10:35→22:14)
--- NOTE | 2018-10-22 13:25 | PN ---
S CIWA - CIWA Score Nausea/Vomitin-Mild Nausea/No Vomiting Muscle Tremors: 2 Anxiety: 2 Agitation: 3 Paroxysmal Sweats: No Perspiration Orientation: 0-Oriented Tacttile Disturbances: 0-None Auditory Disturbances: 0-None Visual Disturbances: 0-None Headache: 0-None Present CIWA-Ar Total Score: 8 S Progress Note (SOAP) Subjective: feeling better today discuss aftercare with staff patient prefers to go to in patient recovery facility for his sobriety Objective: 10/22/18 13:26 Vital Signs Temperature 97.4 F L 10/22/18 13:18 Pulse Rate 88 10/22/18 13:18 Respiratory Rate 18 10/22/18 13:18 Blood Pressure 125/77 10/22/18 13:18 O2 Sat by Pulse Oximetry (%) Laboratory Last Values WBC 6.3 K/mm3 (4.0-10.0) 10/20/18 08:00 RBC 4.93 M/mm3 (4.00-5.60) 10/20/18 08:00 Hgb 15.5 GM/dL (11.7-16.9) 10/20/18 08:00 Hct 46.5 % (35.4-49) 10/20/18 08:00 MCV 94.2 fl (80-96) 10/20/18 08:00 MCH 31.5 pg (25.7-33.7) 10/20/18 08:00 MCHC 33.4 g/dl (32.0-35.9) 10/20/18 08:00 RDW 13.1 % (11.9-15.9) 10/20/18 08:00 Plt Count 247 K/MM3 (134-434) 10/20/18 08:00 MPV 8.6 fl (7.5-11.1) 10/20/18 08:00 Sodium 138 mmol/L (136-145) 10/20/18 08:00 Potassium 4.1 mmol/L (3.5-5.1) 10/20/18 08:00 Chloride 104 mmol/L (98-107) 10/20/18 08:00 Carbon Dioxide 29 mmol/L (21-32) 10/20/18 08:00 Anion Gap 5 MMOL/L (8-16) L 10/20/18 08:00 BUN 10.9 mg/dL (7-18) 10/20/18 08:00 Creatinine 1.1 mg/dL (0.55-1.3) 10/20/18 08:00 Est GFR (CKD-EPI)AfAm 103.13 10/20/18 08:00 Est GFR (CKD-EPI)NonAf 88.98 10/20/18 08:00 Random Glucose 99 mg/dL (74-106) 10/20/18 08:00 Calcium 8.6 mg/dL (8.5-10.1) 10/20/18 08:00 Total Bilirubin 0.6 mg/dL (0.2-1) 10/20/18 08:00 AST 19 U/L (15-37) 10/20/18 08:00 ALT 20 U/L (13-61) 10/20/18 08:00 Alkaline Phosphatase 122 U/L (45-117) H 10/20/18 08:00 Total Protein 6.6 g/dl (6.4-8.2) 10/20/18 08:00 Albumin 3.5 g/dl (3.4-5.0) 10/20/18 08:00 RPR Titer Nonreactive (NONREACTIVE) 10/20/18 08:00 lab noted Assessment: 10/22/18 13:26 alcohol withdrawal sx Plan: continue alcohol detox
[2018-10-22] MEDS: THIAMINE HCL 100 MG TABLET (FP) PO SCH (22:13)
[2018-10-22] MEDS: MELATONIN 5 MG TABLETS PO PRN (22:13)
[2018-10-22] MEDS: QUEtiapine FUMARATE 50 MG TABLET PO SCH (22:13)
[2018-10-23] MEDS: chlordiazePOXIDE HCL 10 MG CAPSULE PO SCH ×2 (05:40→17:12)
[2018-10-23] MEDS: NICOTINE POLACRILEX 2 MG GUM BUC PRN ×3 (10:37→22:14)
[2018-10-23] MEDS: NICOTINE 14 MG/24 HOURS TOPICAL PATCH TD SCH (10:37)
[2018-10-23] MEDS: PRENATAL VITAMINS W/ FOLIC ACID TABLET (FP) PO SCH (10:37)
--- NOTE | 2018-10-23 15:47 | PN ---
S CIWA - CIWA Score Nausea/Vomitin-No Nausea/No Vomiting Muscle Tremors: 1-None Visible, but [place] Anxiety: 2 Agitation: 1-Slight > Activity Paroxysmal Sweats: No Perspiration Orientation: 0-Oriented Tacttile Disturbances: 0-None Auditory Disturbances: 0-None Visual Disturbances: 0-None Headache: 0-None Present CIWA-Ar Total Score: 4 BHS Progress Note (SOAP) Subjective: 33 years old male admitted on 10/18/18 for alcohol withdrawal sx doing well with librium detox regimen discuss after care with staff prefers to go to [facility] alcohol [facility] Objective: 10/23/18 15:50 Vital Signs Temperature 98.2 F 10/23/18 09:18 Pulse Rate 95 H 10/23/18 09:18 Respiratory Rate 18 10/23/18 09:18 Blood Pressure 125/85 10/23/18 09:18 O2 Sat by Pulse Oximetry (%) Laboratory Last Values WBC 6.3 K/mm3 (4.0-10.0) 10/20/18 08:00 RBC 4.93 M/mm3 (4.00-5.60) 10/20/18 08:00 Hgb 15.5 GM/dL (11.7-16.9) 10/20/18 08:00 Hct 46.5 % (35.4-49) 10/20/18 08:00 MCV 94.2 fl (80-96) 10/20/18 08:00 MCH 31.5 pg (25.7-33.7) 10/20/18 08:00 MCHC 33.4 g/dl (32.0-35.9) 10/20/18 08:00 RDW 13.1 % (11.9-15.9) 10/20/18 08:00 Plt Count 247 K/MM3 (134-434) 10/20/18 08:00 MPV 8.6 fl (7.5-11.1) 10/20/18 08:00 Sodium 138 mmol/L (136-145) 10/20/18 08:00 Potassium 4.1 mmol/L (3.5-5.1) 10/20/18 08:00 Chloride 104 mmol/L (98-107) 10/20/18 08:00 Carbon Dioxide 29 mmol/L (21-32) 10/20/18 08:00 Anion Gap 5 MMOL/L (8-16) L 10/20/18 08:00 BUN 10.9 mg/dL (7-18) 10/20/18 08:00 Creatinine 1.1 mg/dL (0.55-1.3) 10/20/18 08:00 Est GFR (CKD-EPI)AfAm 103.13 10/20/18 08:00 Est GFR (CKD-EPI)NonAf 88.98 10/20/18 08:00 Random Glucose 99 mg/dL (74-106) 10/20/18 08:00 Calcium 8.6 mg/dL (8.5-10.1) 10/20/18 08:00 Total Bilirubin 0.6 mg/dL (0.2-1) 10/20/18 08:00 AST 19 U/L (15-37) 10/20/18 08:00 ALT 20 U/L (13-61) 10/20/18 08:00 Alkaline Phosphatase 122 U/L (45-117) H 10/20/18 08:00 Total Protein 6.6 g/dl (6.4-8.2) 10/20/18 08:00 Albumin 3.5 g/dl (3.4-5.0) 10/20/18 08:00 RPR Titer Nonreactive (NONREACTIVE) 10/20/18 08:00 lab noted Assessment: 10/23/18 15:50 alcohol withdrawal sx Plan: continue alcohol detox
[2018-10-23] MEDS: MELATONIN 5 MG TABLETS PO PRN (22:13)
[2018-10-23] MEDS: THIAMINE HCL 100 MG TABLET (FP) PO SCH (22:13)
[2018-10-23] MEDS: QUEtiapine FUMARATE 50 MG TABLET PO SCH (22:13)
[2018-10-24] MEDS ORDERED: chlordiazePOXIDE HCL 10 MG CAPSULE PO ONE (05:00)
[2018-10-24] MEDS: NICOTINE POLACRILEX 2 MG GUM BUC PRN ×2 (05:23→10:17)
[2018-10-24 06:38] VITALS: BP 99/57; PULSE 81; TEMP 97
[2018-10-24] MEDS: NICOTINE 14 MG/24 HOURS TOPICAL PATCH TD SCH (10:17)
[2018-10-24] MEDS: PRENATAL VITAMINS W/ FOLIC ACID TABLET (FP) PO SCH (10:17)
--- NOTE | 2018-10-24 17:37 | DS ---
[facility] Detox Discharge Summary Admission Date: 10/18/18 Discharge Date: 10/24/18 - History Present History: Alcohol Dependence Additional Comments: PATIENT REFERRED TO '[facility] OUTPATIENT PRO[facility] ([place], [place]) FOR AFTERCARE. PATIENT WAS DISCHARGED FROM DETOX UNIT IN STABLE MEDICAL CONDITION. Pertinent Past History: Depressive Disorder, Anxiety, History Of Seizures, Nicotine Dependence. - Physical Exam Results Vital Signs: Vital Signs Temperature 97.0 F L 10/24/18 06:00 Pulse Rate 81 10/24/18 06:00 Respiratory Rate 18 10/24/18 06:00 Blood Pressure 99/57 L 10/24/18 06:00 O2 Sat by Pulse Oximetry (%) Pertinent Admission Physical Exam Findings: WITHDRAWAL SYMPTOMS. Laboratory Tests 10/20/18 10/20/18 10/20/18 08:00 08:00 08:00 WBC 6.3 RBC 4.93 Hgb 15.5 Hct 46.5 MCV 94.2 MCH 31.5 MCHC 33.4 RDW 13.1 Plt Count 247 MPV 8.6 Sodium 138 Potassium 4.1 Chloride 104 Carbon Dioxide 29 Anion Gap 5 L BUN 10.9 Creatinine 1.1 Est GFR (CKD-EPI)AfAm 103.13 Est GFR (CKD-EPI)NonAf 88.98 Random Glucose 99 Calcium 8.6 Total Bilirubin 0.6 AST 19 ALT 20 Alkaline Phosphatase 122 H Total Protein 6.6 Albumin 3.5 RPR Titer Nonreactive LABS NOTED. - Treatment Hospital Course: Detox Protocol Followed, Detoxed Safely, Responded well, Discharged Condition Good Patient has Accepted a Rehab Referral to: PT. REFERRED TO '[facility] OUTPATIENT [facility] ([place], [place]). - Medication Discharge Medications: Ambulatory Orders Bupropion HCl [Wellbutrin -] 100 mg PO DAILY 10/18/18 Citalopram Hydrobromide [Celexa -] 10 mg PO DAILY 10/18/18 - Diagnosis (1) Alcohol dependence with withdrawal Status: Acute Qualifiers: Complication of substance-induced condition: uncomplicated Qualified Code(s ): F10.230 - Alcohol dependence with withdrawal, uncomplicated (2) Alcohol-induced mood disorder Status: Acute (3) Alcohol-induced sleep disorder Status: Acute (4) Seizure Status: Acute (5) Anxiety Status: Chronic (6) Depressive disorder Status: Chronic (7) Nicotine dependence Status: Chronic Qualifiers: Nicotine product type: cigarettes Substance use status: uncomplicated Qualified Code(s): F17.210 - Nicotine dependence, cigarettes, uncomplicated - AMA Did Patient Leave Against Medical Advice: No
== END 2018-10-24 10:54 | disposition home or self-care (01) | DRG 775 ==
LOC: YASAS 22:16 → Y3N 23:54
PROVIDERS: ADMIT Surgery; ATTEND Surgery
PROC: HZ2ZZZZ Detoxification Services for Substance Abuse Treatment (ICD-10-PCS; principal; 2018-10-18)
DX: F10.230 Alcohol dependence with withdrawal, uncomplicated (principal); F17.210 Nicotine dependence, cigarettes, uncomplicated; F10.24 Alcohol dependence with alcohol-induced mood disorder; F10.282 Alcohol dependence with alcohol-induced sleep disorder; F41.8 Other specified anxiety disorders; F32.9 Major depressive disorder, single episode, unspecified; G40.909 Epilepsy, unspecified, not intractable, without status epilepticus
CPT/HCPCS: 36415; 80053; 85027; 86593

== ENCOUNTER 2020-11-09 10:10 | Inpatient (IN) | payer OTHER ==
[2020-11-09 10:39] VITALS: BMI 27.3
[2020-11-09] MEDS ORDERED: ACETAMINOPHEN 325 MG TABLET (FP) PO PRN (11:11)
[2020-11-09] MEDS ORDERED: MAGNESIUM HYDROX 2400MG/30ML ORAL SUSPENSION 30 ML CUP PO PRN (11:11)
[2020-11-09] MEDS ORDERED: METHOCARBAMOL 500 MG TABLET PO PRN (11:11)
[2020-11-09] MEDS ORDERED: MAG HYDROX/AL HYDROX/SIMETH 30 ML UNIT-DOSE CUP PO PRN (11:11)
[2020-11-09] MEDS ORDERED: MAGNESIUM CITRATE 300 ML BOTTLE PO PRN (11:11)
[2020-11-09] MEDS ORDERED: ONDANSETRON *ODT* 4 MG TABLET SL PRN (11:11)
[2020-11-09] MEDS ORDERED: MENTHOL/PHENOL 1 EACH UD MM PRN (11:11)
[2020-11-09] MEDS ORDERED: BISMUTH SUBSALICYLATE 262 MG/15 ML BTL PO PRN (11:11)
[2020-11-09] MEDS ORDERED: IBUPROFEN 400 MG TABLET (FP) PO PRN (11:11)
[2020-11-09] MEDS: PRENATAL VITAMINS W/ FOLIC ACID TABLET (FP) PO SCH (12:21)
[2020-11-09] MEDS: NICOTINE 21 MG/24 HOURS TOPICAL PATCH TD SCH (12:22)
[2020-11-09] MEDS: NICOTINE POLACRILEX 2 MG GUM BUC PRN (12:22)
[2020-11-09] MEDS ORDERED: COVID-19 VAC,AD26(JANSSEN)/PF 0.5 ML IM ONE (12:30)
[2020-11-09 13:20] LABS: HEMATOCRIT 43.8 % (35.4-49); HEMOGLOBIN 15.3 GM/dL (11.7-16.9); MCH 33.9 pg (25.7-33.7); MEAN CELL VOLUME 96.9 fl (80-96); MEAN PLT VOLUME 8.2 fl (7.5-11.1); PLATELET COUNT 284 10^3/uL (134-434); RBC 4.53 M/mm3 (4.00-5.60); RDW 13.5 % (11.9-15.9)
[2020-11-09 13:42] LABS: ALBUMIN 4.2 g/dl (3.4-5.0)
[2020-11-09 13:43] LABS: BLOOD UREA NITROGEN 10.4 mg/dL (7-18)
[2020-11-09 13:46] LABS: CREATININE 0.9 mg/dL (0.55-1.3)
[2020-11-09 13:47] LABS: BILIRUBIN,TOTAL 0.6 mg/dL (0.2-1); TOT PROT 7.7 g/dl (6.4-8.2)
[2020-11-09] MEDS: hydrOXYzine PAMOATE 25 MG CAPSULE (FP) PO SCH ×2 (14:47→22:40)
[2020-11-09] MEDS ORDERED: QUEtiapine FUMARATE 25 MG TABLET ONE (21:39)
[2020-11-09] MEDS: QUEtiapine FUMARATE 50 MG TABLET PO SCH (22:40)
[2020-11-09] MEDS: THIAMINE HCL 100 MG TABLET (FP) PO SCH (22:40)
[2020-11-09] MEDS: MELATONIN 5 MG TABLETS PO SCH (22:41)
[2020-11-10] MEDS: hydrOXYzine PAMOATE 25 MG CAPSULE (FP) PO SCH ×2 (05:50→10:25)
[2020-11-10] MEDS: NICOTINE 21 MG/24 HOURS TOPICAL PATCH TD SCH (10:25)
[2020-11-10] MEDS: NICOTINE POLACRILEX 2 MG GUM BUC PRN ×2 (10:25→18:45)
[2020-11-10] MEDS: PRENATAL VITAMINS W/ FOLIC ACID TABLET (FP) PO SCH (10:25)
[2020-11-10] MEDS ORDERED: hydrOXYzine PAMOATE 25 MG CAPSULE (FP) PO PRN (10:57)
[2020-11-10] MEDS: diazePAM 5 MG TABLET PO SCH ×2 (12:56→18:44)
[2020-11-10] MEDS: ACETAMINOPHEN 325 MG TABLET (FP) PO PRN ×2 (12:58→18:47)
[2020-11-11] MEDS: THIAMINE HCL 100 MG TABLET (FP) PO SCH ×2 (00:10→23:00)
[2020-11-11] MEDS: diazePAM 5 MG TABLET PO SCH ×5 (00:10→23:00)
[2020-11-11] MEDS: QUEtiapine FUMARATE 50 MG TABLET PO SCH ×2 (00:10→22:59)
[2020-11-11] MEDS: MELATONIN 5 MG TABLETS PO SCH ×2 (00:10→23:30)
[2020-11-11] MEDS: ACETAMINOPHEN 325 MG TABLET (FP) PO PRN (05:48)
[2020-11-11] MEDS: PRENATAL VITAMINS W/ FOLIC ACID TABLET (FP) PO SCH (10:14)
[2020-11-11] MEDS: NICOTINE 21 MG/24 HOURS TOPICAL PATCH TD SCH (10:14)
[2020-11-11] MEDS: NICOTINE POLACRILEX 2 MG GUM BUC PRN (10:16)
[2020-11-11] MEDS ORDERED: cloNIDine HCL 0.1 MG TABLET PO SCH (19:00)
[2020-11-12] MEDS: cloNIDine HCL 0.1 MG TABLET PO SCH ×3 (05:40→22:34)
[2020-11-12] MEDS: diazePAM 5 MG TABLET PO SCH ×3 (05:40→22:35)
[2020-11-12] MEDS: ACETAMINOPHEN 325 MG TABLET (FP) PO PRN ×3 (05:41→22:34)
[2020-11-12] MEDS: PRENATAL VITAMINS W/ FOLIC ACID TABLET (FP) PO SCH (10:24)
[2020-11-12] MEDS: diazePAM 5 MG TABLET PO PRN (10:25)
[2020-11-12] MEDS: NICOTINE POLACRILEX 2 MG GUM BUC PRN ×2 (10:28→22:36)
[2020-11-12] MEDS: NICOTINE 21 MG/24 HOURS TOPICAL PATCH TD SCH (10:28)
[2020-11-12] MEDS: NICOTINE 10 MG CARTRIDGE (INHALER) IH PRN (15:12)
[2020-11-12] MEDS: QUEtiapine FUMARATE 50 MG TABLET PO SCH (22:35)
[2020-11-12] MEDS: THIAMINE HCL 100 MG TABLET (FP) PO SCH (22:35)
[2020-11-12] MEDS: MELATONIN 5 MG TABLETS PO SCH (23:02)
[2020-11-13] MEDS: NICOTINE 10 MG CARTRIDGE (INHALER) IH PRN ×2 (00:01→10:28)
[2020-11-13] MEDS: diazePAM 5 MG TABLET PO SCH ×2 (07:10→18:52)
[2020-11-13] MEDS: NICOTINE POLACRILEX 2 MG GUM BUC PRN (07:12)
[2020-11-13] MEDS: cloNIDine HCL 0.1 MG TABLET PO SCH ×3 (07:12→22:33)
[2020-11-13] MEDS: ACETAMINOPHEN 325 MG TABLET (FP) PO PRN (10:25)
[2020-11-13] MEDS: diazePAM 5 MG TABLET PO PRN (10:26)
[2020-11-13] MEDS: NICOTINE 21 MG/24 HOURS TOPICAL PATCH TD SCH (10:28)
[2020-11-13] MEDS: PRENATAL VITAMINS W/ FOLIC ACID TABLET (FP) PO SCH (10:28)
[2020-11-13] MEDS: QUEtiapine FUMARATE 50 MG TABLET PO SCH (22:32)
[2020-11-13] MEDS: MELATONIN 5 MG TABLETS PO SCH (22:33)
[2020-11-13] MEDS: THIAMINE HCL 100 MG TABLET (FP) PO SCH (22:33)
[2020-11-14] MEDS ORDERED: diazePAM 5 MG TABLET PO ONE (06:00)
[2020-11-14] MEDS: cloNIDine HCL 0.1 MG TABLET PO SCH (07:39)
[2020-11-14 09:19] VITALS: BP 128/85; PULSE 114; TEMP 96.9
[2020-11-14] MEDS: PRENATAL VITAMINS W/ FOLIC ACID TABLET (FP) PO SCH (10:06)
[2020-11-14] MEDS: ACETAMINOPHEN 325 MG TABLET (FP) PO PRN (10:07)
[2020-11-14] MEDS: NICOTINE POLACRILEX 2 MG GUM BUC PRN (10:08)
[2020-11-14] MEDS: NICOTINE 21 MG/24 HOURS TOPICAL PATCH TD SCH (10:20)
== END 2020-11-14 12:19 | disposition home or self-care (01) | DRG 775 ==
LOC: YASAS 10:10 → UNDOADMIN 10:57 → Y3N 10:57
PROVIDERS: ADMIT Allergy & Immunology; ATTEND Allergy & Immunology
PROC: HZ2ZZZZ Detoxification Services for Substance Abuse Treatment (ICD-10-PCS; principal; 2020-11-09)
DX: F10.230 Alcohol dependence with withdrawal, uncomplicated (principal); F10.24 Alcohol dependence with alcohol-induced mood disorder; F17.210 Nicotine dependence, cigarettes, uncomplicated; F32.9 Major depressive disorder, single episode, unspecified; G47.00 Insomnia, unspecified; Z91.14 Patient's other noncompliance with medication regimen; Z56.0 Unemployment, unspecified; Z59.0 Homelessness
CPT/HCPCS: 0031A; 36415; 80053; 85027; 86780; 91303; C9803; J0735; U0003; U0005

== ENCOUNTER 2021-01-13 11:40 | Inpatient (IN) | payer OTHER ==
[2021-01-13 12:17] VITALS: BMI 27.8
[2021-01-13] MEDS ORDERED: MAGNESIUM CITRATE 300 ML BOTTLE PO PRN (12:30)
[2021-01-13] MEDS ORDERED: IBUPROFEN 400 MG TABLET (FP) PO PRN (12:30)
[2021-01-13] MEDS ORDERED: MAGNESIUM HYDROX 2400MG/30ML ORAL SUSPENSION 30 ML CUP PO PRN (12:30)
[2021-01-13] MEDS ORDERED: P-EPHED 60MG/TRIPROLIDI 2.5MG TABLET PO PRN (12:30)
[2021-01-13] MEDS ORDERED: guaiFENesin 200 MG/10 ML 10 ML UNIT-DOSE CUPS PO PRN (12:30)
[2021-01-13] MEDS ORDERED: LOPERAMIDE HCL 2 MG CAPSULE PO PRN (12:30)
[2021-01-13] MEDS ORDERED: MAG HYDROX/AL HYDROX/SIMETH 30 ML UNIT-DOSE CUP PO PRN (12:30)
[2021-01-13] MEDS ORDERED: PNEUMOC 13-VAL CONJ-DIP CRM/PF 0.5 ML DISP.SYRIN IM ONE (13:46)
[2021-01-13] MEDS: PRENATAL VITAMINS W/ FOLIC ACID TABLET (FP) PO SCH (14:28)
[2021-01-13] MEDS: NICOTINE 10 MG CARTRIDGE (INHALER) IH PRN ×2 (14:29→21:25)
[2021-01-13] MEDS: hydrOXYzine PAMOATE 25 MG CAPSULE (FP) PO SCH ×3 (14:29→21:24)
[2021-01-13 17:20] LABS: HEMATOCRIT 47.2 % (35.4-49); HEMOGLOBIN 16.2 GM/dL (11.7-16.9); MCH 33.5 pg (25.7-33.7); MCHC 34.4 g/dl (32.0-35.9); MEAN CELL VOLUME 97.2 fl (80-96); MEAN PLT VOLUME 8.5 fl (7.5-11.1); PLATELET COUNT 288 10^3/uL (134-434); RBC 4.85 M/mm3 (4.00-5.60); RDW 13.9 % (11.9-15.9); WHITE BLOOD COUNT 8.5 K/mm3 (4.0-10.0)
[2021-01-13 17:25] LABS: CALCIUM 9.3 mg/dL (8.5-10.1)
[2021-01-13 17:26] LABS: ALBUMIN 4.2 g/dl (3.4-5.0); BLOOD UREA NITROGEN 10.8 mg/dL (7-18)
[2021-01-13 17:30] LABS: BILIRUBIN,TOTAL 0.6 mg/dL (0.2-1)
[2021-01-13 17:31] LABS: TOT PROT 8.5 g/dl (6.4-8.2)
[2021-01-13 17:52] LABS: SYPHILIS W/ RPR CONF NON-REACTIVE (NONREACTIVE)
[2021-01-13] MEDS: THIAMINE HCL 100 MG TABLET (FP) PO SCH (21:24)
[2021-01-13] MEDS: MELATONIN 5 MG TABLETS PO SCH (21:24)
[2021-01-14] MEDS: hydrOXYzine PAMOATE 25 MG CAPSULE (FP) PO SCH ×5 (06:30→21:05)
[2021-01-14] MEDS: NICOTINE POLACRILEX 2 MG GUM BC PRN ×4 (06:30→21:05)
[2021-01-14] MEDS: PRENATAL VITAMINS W/ FOLIC ACID TABLET (FP) PO SCH (10:21)
[2021-01-14] MEDS: NICOTINE 10 MG CARTRIDGE (INHALER) IH PRN (10:21)
[2021-01-14] MEDS ORDERED: FLU VACC QS2021-22(6MOS UP)/PF 60 MCG/0.5 ML SYRINGE IM ONE (12:00)
[2021-01-14] MEDS ORDERED: PNEUMOCOCCAL 23 VACCINE 0.5 ML VIAL IM ONE (12:00)
[2021-01-14 15:05] LABS: PH,URINE 5.5 (5.0-8.0); URINE APPEARANCE CLEAR; URINE BILIRUBIN NEGATIVE (NEGATIVE); URINE COLOR YELLOW; URINE GLUCOSE (UA) NEGATIVE (NEGATIVE); URINE KETONE NEGATIVE (NEGATIVE); URINE LEUK ESTERASE NEGATIVE (NEGATIVE); URINE NITRITE NEGATIVE (NEGATIVE); URINE PROTEIN NEGATIVE (NEGATIVE); URINE UROBILINOGEN 0.2 mg/dL (0.2-1.0)
[2021-01-14] MEDS: THIAMINE HCL 100 MG TABLET (FP) PO SCH (21:05)
[2021-01-14] MEDS: MELATONIN 5 MG TABLETS PO SCH (21:05)
[2021-01-15] MEDS: hydrOXYzine PAMOATE 25 MG CAPSULE (FP) PO SCH ×5 (06:19→21:23)
[2021-01-15] MEDS: NICOTINE POLACRILEX 2 MG GUM BC PRN ×5 (06:21→21:24)
[2021-01-15] MEDS: PRENATAL VITAMINS W/ FOLIC ACID TABLET (FP) PO SCH (09:45)
[2021-01-15] MEDS: THIAMINE HCL 100 MG TABLET (FP) PO SCH (21:23)
[2021-01-15] MEDS: MELATONIN 5 MG TABLETS PO SCH (21:23)
[2021-01-16] MEDS: hydrOXYzine PAMOATE 25 MG CAPSULE (FP) PO SCH ×5 (06:55→22:14)
[2021-01-16] MEDS: NICOTINE POLACRILEX 2 MG GUM BC PRN ×4 (06:55→14:18)
[2021-01-16] MEDS: PRENATAL VITAMINS W/ FOLIC ACID TABLET (FP) PO SCH (09:53)
[2021-01-16] MEDS: NICOTINE 10 MG CARTRIDGE (INHALER) IH PRN (09:53)
[2021-01-16] MEDS: THIAMINE HCL 100 MG TABLET (FP) PO SCH (22:14)
[2021-01-16] MEDS: MELATONIN 5 MG TABLETS PO SCH (22:14)
[2021-01-17] MEDS: NICOTINE POLACRILEX 2 MG GUM BC PRN ×3 (06:49→21:45)
[2021-01-17] MEDS: hydrOXYzine PAMOATE 25 MG CAPSULE (FP) PO SCH ×5 (06:49→21:45)
[2021-01-17] MEDS: PRENATAL VITAMINS W/ FOLIC ACID TABLET (FP) PO SCH (10:00)
[2021-01-17] MEDS: ACETAMINOPHEN 325 MG TABLET (FP) PO PRN (10:01)
[2021-01-17] MEDS: MELATONIN 5 MG TABLETS PO SCH (21:45)
[2021-01-17] MEDS: NICOTINE 10 MG CARTRIDGE (INHALER) IH PRN (21:45)
[2021-01-17] MEDS: THIAMINE HCL 100 MG TABLET (FP) PO SCH (21:45)
[2021-01-18] MEDS: NICOTINE POLACRILEX 2 MG GUM BC PRN ×3 (07:13→13:26)
[2021-01-18] MEDS: hydrOXYzine PAMOATE 25 MG CAPSULE (FP) PO SCH ×5 (07:13→21:35)
[2021-01-18] MEDS: PRENATAL VITAMINS W/ FOLIC ACID TABLET (FP) PO SCH (10:15)
[2021-01-18] MEDS: MELATONIN 5 MG TABLETS PO SCH (21:35)
[2021-01-18] MEDS: THIAMINE HCL 100 MG TABLET (FP) PO SCH (21:35)
[2021-01-19] MEDS: hydrOXYzine PAMOATE 25 MG CAPSULE (FP) PO SCH ×5 (06:45→21:26)
[2021-01-19] MEDS: NICOTINE POLACRILEX 2 MG GUM BC PRN ×4 (06:45→21:26)
[2021-01-19] MEDS: PRENATAL VITAMINS W/ FOLIC ACID TABLET (FP) PO SCH (10:03)
[2021-01-19] MEDS: NICOTINE 10 MG CARTRIDGE (INHALER) IH PRN (10:03)
[2021-01-19] MEDS: MELATONIN 5 MG TABLETS PO SCH (21:26)
[2021-01-19] MEDS: THIAMINE HCL 100 MG TABLET (FP) PO SCH (21:26)
[2021-01-20] MEDS: NICOTINE POLACRILEX 2 MG GUM BC PRN ×3 (06:38→14:38)
[2021-01-20] MEDS: hydrOXYzine PAMOATE 25 MG CAPSULE (FP) PO SCH ×5 (06:38→21:21)
[2021-01-20] MEDS: PRENATAL VITAMINS W/ FOLIC ACID TABLET (FP) PO SCH (10:05)
[2021-01-20] MEDS: NICOTINE 10 MG CARTRIDGE (INHALER) IH PRN ×2 (10:06→21:20)
[2021-01-20] MEDS: THIAMINE HCL 100 MG TABLET (FP) PO SCH (21:20)
[2021-01-20] MEDS: MELATONIN 5 MG TABLETS PO SCH (21:20)
[2021-01-21] MEDS: NICOTINE POLACRILEX 2 MG GUM BC PRN ×3 (06:26→21:34)
[2021-01-21] MEDS: hydrOXYzine PAMOATE 25 MG CAPSULE (FP) PO SCH ×5 (06:26→21:33)
[2021-01-21] MEDS: PRENATAL VITAMINS W/ FOLIC ACID TABLET (FP) PO SCH (09:52)
[2021-01-21] MEDS: NICOTINE 10 MG CARTRIDGE (INHALER) IH PRN ×2 (09:52→21:34)
[2021-01-21] MEDS: MELATONIN 5 MG TABLETS PO SCH (21:33)
[2021-01-21] MEDS: THIAMINE HCL 100 MG TABLET (FP) PO SCH (21:33)
[2021-01-22] MEDS: NICOTINE POLACRILEX 2 MG GUM BC PRN ×2 (05:56→10:10)
[2021-01-22] MEDS: hydrOXYzine PAMOATE 25 MG CAPSULE (FP) PO SCH ×5 (05:56→21:42)
[2021-01-22] MEDS: NICOTINE 10 MG CARTRIDGE (INHALER) IH PRN ×3 (05:57→21:46)
[2021-01-22] MEDS: PRENATAL VITAMINS W/ FOLIC ACID TABLET (FP) PO SCH (10:10)
[2021-01-22] MEDS: THIAMINE HCL 100 MG TABLET (FP) PO SCH (21:42)
[2021-01-22] MEDS: MELATONIN 5 MG TABLETS PO SCH (21:42)
[2021-01-23] MEDS: NICOTINE POLACRILEX 2 MG GUM BC PRN ×2 (06:06→10:00)
[2021-01-23] MEDS: hydrOXYzine PAMOATE 25 MG CAPSULE (FP) PO SCH ×5 (06:06→21:29)
[2021-01-23] MEDS: NICOTINE 10 MG CARTRIDGE (INHALER) IH PRN ×2 (10:00→21:29)
[2021-01-23] MEDS: PRENATAL VITAMINS W/ FOLIC ACID TABLET (FP) PO SCH (10:00)
[2021-01-23] MEDS: MELATONIN 5 MG TABLETS PO SCH (21:29)
[2021-01-23] MEDS: THIAMINE HCL 100 MG TABLET (FP) PO SCH (21:29)
[2021-01-24] MEDS: hydrOXYzine PAMOATE 25 MG CAPSULE (FP) PO SCH ×5 (06:56→21:24)
[2021-01-24] MEDS: PRENATAL VITAMINS W/ FOLIC ACID TABLET (FP) PO SCH (09:52)
[2021-01-24] MEDS: NICOTINE POLACRILEX 2 MG GUM BC PRN ×2 (09:52→21:24)
[2021-01-24] MEDS: NICOTINE 10 MG CARTRIDGE (INHALER) IH PRN (11:53)
[2021-01-24] MEDS: MELATONIN 5 MG TABLETS PO SCH (21:24)
[2021-01-24] MEDS: THIAMINE HCL 100 MG TABLET (FP) PO SCH (21:24)
[2021-01-25] MEDS: NICOTINE POLACRILEX 2 MG GUM BC PRN ×3 (06:26→21:18)
[2021-01-25] MEDS: hydrOXYzine PAMOATE 25 MG CAPSULE (FP) PO SCH ×5 (06:26→21:18)
[2021-01-25] MEDS: NICOTINE 10 MG CARTRIDGE (INHALER) IH PRN (10:15)
[2021-01-25] MEDS: PRENATAL VITAMINS W/ FOLIC ACID TABLET (FP) PO SCH (10:15)
[2021-01-25] MEDS: THIAMINE HCL 100 MG TABLET (FP) PO SCH (21:18)
[2021-01-25] MEDS: MELATONIN 5 MG TABLETS PO SCH (21:18)
[2021-01-26] MEDS: hydrOXYzine PAMOATE 25 MG CAPSULE (FP) PO SCH ×2 (06:39→09:09)
[2021-01-26] MEDS: PRENATAL VITAMINS W/ FOLIC ACID TABLET (FP) PO SCH (09:09)
[2021-01-26] MEDS: NICOTINE POLACRILEX 2 MG GUM BC PRN ×2 (09:10→21:37)
[2021-01-26] MEDS: NICOTINE 10 MG CARTRIDGE (INHALER) IH PRN (15:08)
[2021-01-26] MEDS: MELATONIN 5 MG TABLETS PO SCH (21:37)
[2021-01-26] MEDS: hydrOXYzine PAMOATE 25 MG CAPSULE (FP) PO PRN (21:37)
[2021-01-26] MEDS: THIAMINE HCL 100 MG TABLET (FP) PO SCH (21:37)
[2021-01-27] MEDS: hydrOXYzine PAMOATE 25 MG CAPSULE (FP) PO PRN ×3 (10:21→21:20)
[2021-01-27] MEDS: NICOTINE 10 MG CARTRIDGE (INHALER) IH PRN ×2 (10:21→21:22)
[2021-01-27] MEDS: PRENATAL VITAMINS W/ FOLIC ACID TABLET (FP) PO SCH (10:21)
[2021-01-27] MEDS: NICOTINE POLACRILEX 2 MG GUM BC PRN ×2 (10:22→14:20)
[2021-01-27] MEDS: THIAMINE HCL 100 MG TABLET (FP) PO SCH (21:20)
[2021-01-27] MEDS: MELATONIN 5 MG TABLETS PO SCH (21:21)
[2021-01-27] MEDS: ACETAMINOPHEN 325 MG TABLET (FP) PO PRN (21:21)
[2021-01-28] MEDS: hydrOXYzine PAMOATE 25 MG CAPSULE (FP) PO PRN ×2 (09:26→21:22)
[2021-01-28] MEDS: NICOTINE POLACRILEX 2 MG GUM BC PRN ×2 (09:27→21:22)
[2021-01-28] MEDS: PRENATAL VITAMINS W/ FOLIC ACID TABLET (FP) PO SCH (09:28)
[2021-01-28] MEDS: MELATONIN 5 MG TABLETS PO SCH (21:21)
[2021-01-28] MEDS: THIAMINE HCL 100 MG TABLET (FP) PO SCH (21:21)
[2021-01-29] MEDS: PRENATAL VITAMINS W/ FOLIC ACID TABLET (FP) PO SCH (09:11)
[2021-01-29] MEDS: hydrOXYzine PAMOATE 25 MG CAPSULE (FP) PO PRN ×2 (09:12→21:11)
[2021-01-29] MEDS: NICOTINE POLACRILEX 2 MG GUM BC PRN (09:13)
[2021-01-29] MEDS: NICOTINE 10 MG CARTRIDGE (INHALER) IH PRN (21:11)
[2021-01-29] MEDS: THIAMINE HCL 100 MG TABLET (FP) PO SCH (21:11)
[2021-01-29] MEDS: MELATONIN 5 MG TABLETS PO SCH (21:11)
[2021-01-30] MEDS: PRENATAL VITAMINS W/ FOLIC ACID TABLET (FP) PO SCH (09:45)
[2021-01-30] MEDS: NICOTINE 10 MG CARTRIDGE (INHALER) IH PRN ×2 (09:46→21:23)
[2021-01-30] MEDS: hydrOXYzine PAMOATE 25 MG CAPSULE (FP) PO PRN ×2 (09:46→21:23)
[2021-01-30] MEDS: THIAMINE HCL 100 MG TABLET (FP) PO SCH (21:23)
[2021-01-30] MEDS: MELATONIN 5 MG TABLETS PO SCH (21:23)
[2021-01-30] MEDS: ACETAMINOPHEN 325 MG TABLET (FP) PO PRN (21:24)
[2021-01-31] MEDS: hydrOXYzine PAMOATE 25 MG CAPSULE (FP) PO PRN ×2 (10:03→21:31)
[2021-01-31] MEDS: NICOTINE 10 MG CARTRIDGE (INHALER) IH PRN ×2 (10:03→21:33)
[2021-01-31] MEDS: PRENATAL VITAMINS W/ FOLIC ACID TABLET (FP) PO SCH (10:03)
[2021-01-31] MEDS: NICOTINE POLACRILEX 2 MG GUM BC PRN (10:05)
[2021-01-31] MEDS: MELATONIN 5 MG TABLETS PO SCH (21:31)
[2021-01-31] MEDS: THIAMINE HCL 100 MG TABLET (FP) PO SCH (21:31)
[2021-02-01] MEDS: NICOTINE 10 MG CARTRIDGE (INHALER) IH PRN ×2 (09:53→21:25)
[2021-02-01] MEDS: NICOTINE POLACRILEX 2 MG GUM BC PRN (09:53)
[2021-02-01] MEDS: hydrOXYzine PAMOATE 25 MG CAPSULE (FP) PO PRN (09:53)
[2021-02-01] MEDS: PRENATAL VITAMINS W/ FOLIC ACID TABLET (FP) PO SCH (09:53)
[2021-02-01] MEDS: THIAMINE HCL 100 MG TABLET (FP) PO SCH (21:01)
[2021-02-01] MEDS: MELATONIN 5 MG TABLETS PO SCH (21:01)
[2021-02-01] MEDS: hydrOXYzine PAMOATE 50 MG CAPSULE (FP) PO PRN (21:01)
[2021-02-02] MEDS: buPROPion HCL 75 MG TABLET PO SCH (09:56)
[2021-02-02] MEDS: NICOTINE 10 MG CARTRIDGE (INHALER) IH PRN (09:56)
[2021-02-02] MEDS: hydrOXYzine PAMOATE 50 MG CAPSULE (FP) PO PRN ×2 (09:56→21:13)
[2021-02-02] MEDS: NICOTINE POLACRILEX 2 MG GUM BC PRN ×3 (09:56→21:14)
[2021-02-02] MEDS: PRENATAL VITAMINS W/ FOLIC ACID TABLET (FP) PO SCH (09:56)
[2021-02-02] MEDS: MELATONIN 5 MG TABLETS PO SCH (21:13)
[2021-02-02] MEDS: THIAMINE HCL 100 MG TABLET (FP) PO SCH (21:13)
[2021-02-03] MEDS: PRENATAL VITAMINS W/ FOLIC ACID TABLET (FP) PO SCH (09:48)
[2021-02-03] MEDS: buPROPion HCL 75 MG TABLET PO SCH (09:48)
[2021-02-03] MEDS: hydrOXYzine PAMOATE 50 MG CAPSULE (FP) PO PRN ×2 (09:49→21:25)
[2021-02-03] MEDS: NICOTINE 10 MG CARTRIDGE (INHALER) IH PRN ×2 (09:50→21:26)
[2021-02-03] MEDS: THIAMINE HCL 100 MG TABLET (FP) PO SCH (21:25)
[2021-02-03] MEDS: MELATONIN 5 MG TABLETS PO SCH (21:25)
[2021-02-04] MEDS: PRENATAL VITAMINS W/ FOLIC ACID TABLET (FP) PO SCH (10:07)
[2021-02-04] MEDS: NICOTINE 10 MG CARTRIDGE (INHALER) IH PRN ×2 (10:07→21:30)
[2021-02-04] MEDS: buPROPion HCL 75 MG TABLET PO SCH (10:07)
[2021-02-04] MEDS: hydrOXYzine PAMOATE 50 MG CAPSULE (FP) PO PRN ×2 (10:07→19:06)
[2021-02-04] MEDS: NICOTINE POLACRILEX 2 MG GUM BC PRN ×3 (10:08→21:30)
[2021-02-04] MEDS: THIAMINE HCL 100 MG TABLET (FP) PO SCH (21:29)
[2021-02-04] MEDS: MELATONIN 5 MG TABLETS PO SCH (21:29)
[2021-02-05] MEDS: PRENATAL VITAMINS W/ FOLIC ACID TABLET (FP) PO SCH (09:40)
[2021-02-05] MEDS: buPROPion HCL 75 MG TABLET PO SCH (09:40)
[2021-02-05] MEDS: hydrOXYzine PAMOATE 50 MG CAPSULE (FP) PO PRN ×2 (09:40→17:11)
[2021-02-05] MEDS: NICOTINE 10 MG CARTRIDGE (INHALER) IH PRN (09:41)
[2021-02-05] MEDS: NICOTINE POLACRILEX 2 MG GUM BC PRN ×2 (17:09→20:16)
[2021-02-05] MEDS: MELATONIN 5 MG TABLETS PO SCH (21:25)
[2021-02-05] MEDS: THIAMINE HCL 100 MG TABLET (FP) PO SCH (21:25)
[2021-02-06] MEDS: NICOTINE 10 MG CARTRIDGE (INHALER) IH PRN (10:03)
[2021-02-06] MEDS: NICOTINE POLACRILEX 2 MG GUM BC PRN ×3 (10:03→16:40)
[2021-02-06] MEDS: hydrOXYzine PAMOATE 50 MG CAPSULE (FP) PO PRN ×2 (10:03→16:40)
[2021-02-06] MEDS: buPROPion HCL 75 MG TABLET PO SCH (10:03)
[2021-02-06] MEDS: PRENATAL VITAMINS W/ FOLIC ACID TABLET (FP) PO SCH (10:03)
[2021-02-06] MEDS: THIAMINE HCL 100 MG TABLET (FP) PO SCH (21:15)
[2021-02-06] MEDS: MELATONIN 5 MG TABLETS PO SCH (21:15)
[2021-02-07] MEDS: PRENATAL VITAMINS W/ FOLIC ACID TABLET (FP) PO SCH (09:50)
[2021-02-07] MEDS: hydrOXYzine PAMOATE 50 MG CAPSULE (FP) PO PRN ×2 (09:50→21:21)
[2021-02-07] MEDS: buPROPion HCL 75 MG TABLET PO SCH (09:50)
[2021-02-07] MEDS: NICOTINE 10 MG CARTRIDGE (INHALER) IH PRN ×2 (09:51→13:29)
[2021-02-07] MEDS: NICOTINE POLACRILEX 2 MG GUM BC PRN ×2 (13:29→21:22)
[2021-02-07] MEDS: MELATONIN 5 MG TABLETS PO SCH (21:21)
[2021-02-07] MEDS: THIAMINE HCL 100 MG TABLET (FP) PO SCH (21:21)
[2021-02-08] MEDS: PRENATAL VITAMINS W/ FOLIC ACID TABLET (FP) PO SCH (09:47)
[2021-02-08] MEDS: hydrOXYzine PAMOATE 50 MG CAPSULE (FP) PO PRN ×2 (09:47→21:12)
[2021-02-08] MEDS: buPROPion HCL 75 MG TABLET PO SCH (09:47)
[2021-02-08] MEDS: NICOTINE 10 MG CARTRIDGE (INHALER) IH PRN ×3 (09:48→23:22)
[2021-02-08] MEDS: NICOTINE POLACRILEX 2 MG GUM BC PRN ×4 (09:48→21:14)
[2021-02-08] MEDS: THIAMINE HCL 100 MG TABLET (FP) PO SCH (21:12)
[2021-02-08] MEDS: MELATONIN 5 MG TABLETS PO SCH (21:12)
[2021-02-09 07:16] VITALS: BP 138/96; PULSE 100; TEMP 98.6
[2021-02-09] MEDS: PRENATAL VITAMINS W/ FOLIC ACID TABLET (FP) PO SCH (09:53)
[2021-02-09] MEDS: hydrOXYzine PAMOATE 50 MG CAPSULE (FP) PO PRN (09:53)
[2021-02-09] MEDS: NICOTINE 10 MG CARTRIDGE (INHALER) IH PRN (09:54)
[2021-02-09] MEDS: buPROPion HCL 75 MG TABLET PO SCH (09:54)
[2021-02-09] MEDS: NICOTINE POLACRILEX 2 MG GUM BC PRN (09:56)
== END 2021-02-09 11:24 | disposition home or self-care (01) | DRG 772 ==
LOC: YASAS 11:40 → Y3W 12:39
PROVIDERS: ADMIT Allergy & Immunology; ATTEND Allergy & Immunology
PROC: HZ42ZZZ Group Counseling for Substance Abuse Treatment, Cognitive-Behavioral (ICD-10-PCS; principal; 2021-01-13)
DX: F10.20 Alcohol dependence, uncomplicated (principal); F17.210 Nicotine dependence, cigarettes, uncomplicated; F19.280 Other psychoactive substance dependence with psychoactive substance-induced anxiety disorder; F19.282 Other psychoactive substance dependence with psychoactive substance-induced sleep disorder; F19.24 Other psychoactive substance dependence with psychoactive substance-induced mood disorder; F41.9 Anxiety disorder, unspecified; F32.9 Major depressive disorder, single episode, unspecified; B18.2 Chronic viral hepatitis C; G47.00 Insomnia, unspecified
CPT/HCPCS: 36415; 80053; 81003; 85027; 86780; 86803; 90686; 90732; C9803; G0008; G0009; U0003; U0005

== ENCOUNTER 2023-10-08 08:59 | Inpatient (IN) | payer OTHER ==
[2023-10-08 09:18] VITALS: BMI 23.6
[2023-10-08] MEDS ORDERED: NICOTINE POLACRILEX 4 MG LOZENGE BC PRN (10:43)
[2023-10-08] MEDS ORDERED: guaiFENesin 600 MG TABLET.ER (FP) PO PRN (10:43)
[2023-10-08] MEDS ORDERED: ONDANSETRON *ODT* 4 MG TABLET SL PRN (10:43)
[2023-10-08] MEDS ORDERED: IBUPROFEN 400 MG TABLET (FP) PO PRN (10:43)
[2023-10-08] MEDS ORDERED: MAG HYDROX/AL HYDROX/SIMETH 30 ML UNIT-DOSE CUP PO PRN (10:43)
[2023-10-08] MEDS ORDERED: NALOXONE (NARCAN) HCL 4 MG/0.1 ML SPRAY NS PRN (10:43)
[2023-10-08] MEDS ORDERED: IBUPROFEN 600 MG TABLET (FP) PO PRN (10:43)
[2023-10-08] MEDS ORDERED: NALOXONE HCL 0.4 MG/ML VIAL IM PRN (10:43)
[2023-10-08] MEDS ORDERED: DICYCLOMINE HCL 10 MG CAPSULE PO PRN (10:43)
[2023-10-08] MEDS ORDERED: BENZONATATE 200 MG CAPSULE PO PRN (10:43)
[2023-10-08] MEDS ORDERED: LOPERAMIDE HCL 2 MG CAPSULE PO PRN (10:43)
[2023-10-08] MEDS ORDERED: BENZOCAINE/MENTHOL (CHLORASEPTIC ) LOZENGE MM PRN (10:43)
[2023-10-08] MEDS ORDERED: POLYETHYLENE GLYCOL (HEALTHYLAX) 3350 17 GM PACKET PO PRN (10:43)
[2023-10-08] MEDS ORDERED: MAGNESIUM HYDROX 2400MG/30ML ORAL SUSPENSION 30 ML CUP PO PRN (10:43)
[2023-10-08] MEDS ORDERED: ACETAMINOPHEN 325 MG TABLET (FP) PO PRN (10:43)
[2023-10-08] MEDS ORDERED: BISMUTH SUBSALICYLATE 262 MG/15 ML BTL PO PRN (10:43)
[2023-10-08] MEDS: NALTREXONE HCL 50 MG TABLET PO ONE (12:50)
[2023-10-08 23:27] LABS: HIV INTERPRETATION NEGATIVE (NEGATIVE)
[2023-10-08] MEDS: MELATONIN 5 MG TABLETS PO SCH (23:33)
[2023-10-08] MEDS: THIAMINE 100 MG TABLET PO SCH (23:34)
[2023-10-09] MEDS: METHOCARBAMOL 500 MG TABLET PO PRN (09:58)
[2023-10-09] MEDS: hydrOXYzine PAMOATE 25 MG CAPSULE (FP) PO PRN (09:58)
[2023-10-09] MEDS: PRENATAL VITAMINS W/ FOLIC ACID TABLET (FP) PO SCH (09:58)
[2023-10-09] MEDS: NICOTINE POLACRILEX 4 MG GUM BUC PRN (09:58)
[2023-10-09] MEDS: NALTREXONE HCL 50 MG TABLET PO SCH (09:58)
[2023-10-09 11:45] LABS: POTASSIUM 4.4 mmol/L (3.5-5.1)
[2023-10-09 11:54] LABS: CALCIUM 9.2 mg/dL (8.5-10.1)
[2023-10-09 11:59] LABS: ALBUMIN 4.4 g/dl (3.4-5.0)
[2023-10-09 12:00] LABS: BLOOD UREA NITROGEN 7.9 mg/dL (7-18)
[2023-10-09 12:03] LABS: CREATININE 0.9 mg/dL (0.55-1.3)
[2023-10-09 12:04] LABS: BILIRUBIN,TOTAL 1.4 mg/dL (0.2-1)
[2023-10-09 12:05] LABS: TOT PROT 8.1 g/dl (6.4-8.2)
[2023-10-09 12:11] LABS: HEMATOCRIT 49.1 % (35.4-49); HEMOGLOBIN 16.9 GM/dL (11.7-16.9); MCHC 34.5 g/dl (32.0-35.9); MEAN CELL VOLUME 95.8 fl (80-96); MEAN PLT VOLUME 8.7 fl (7.5-11.1); PLATELET COUNT 310 10^3/uL (134-434); RBC 5.13 M/mm3 (4.00-5.60); RDW 13.6 % (11.9-15.9); WHITE BLOOD COUNT 8.4 K/mm3 (4.0-10.0)
[2023-10-09] MEDS: cloNIDine HCL 0.1 MG TABLET PO ONE (13:28)
[2023-10-10 08:45] VITALS: RESP 18
[2023-10-10] MEDS: LACTULOSE 20 GM/30 ML UDC (FOR ORAL USE ONLY) PO SCH (09:21)
[2023-10-10 12:33] VITALS: BP 132/81; PULSE 84; TEMP 97.5
== END 2023-10-10 13:57 | disposition other institution (70) | DRG 775 ==
LOC: YASAS 08:59 → Y6N 11:23
PROVIDERS: ADMIT Allergy & Immunology; ATTEND Surgery
PROC: HZ2ZZZZ Detoxification Services for Substance Abuse Treatment (ICD-10-PCS; principal; 2023-10-08)
DX: F10.230 Alcohol dependence with withdrawal, uncomplicated (principal); F17.210 Nicotine dependence, cigarettes, uncomplicated; F10.280 Alcohol dependence with alcohol-induced anxiety disorder; F10.282 Alcohol dependence with alcohol-induced sleep disorder; F39 Unspecified mood [affective] disorder; F41.9 Anxiety disorder, unspecified; B18.2 Chronic viral hepatitis C; R79.89 Other specified abnormal findings of blood chemistry
CPT/HCPCS: 36415; 80053; 80305; 80307; 82140; 85027; 86780; 86803; 87389; 87811; 93005; 93010

== ENCOUNTER 2023-10-10 14:18 | Inpatient (IN) | payer OTHER ==
[2023-10-10] MEDS ORDERED: IBUPROFEN 600 MG TABLET (FP) PO PRN (15:15)
[2023-10-10] MEDS ORDERED: BENZOCAINE/MENTHOL (CHLORASEPTIC ) LOZENGE MM PRN (15:15)
[2023-10-10] MEDS ORDERED: BENZONATATE 200 MG CAPSULE PO PRN (15:15)
[2023-10-10] MEDS ORDERED: MAG HYDROX/AL HYDROX/SIMETH 30 ML UNIT-DOSE CUP PO PRN (15:15)
[2023-10-10] MEDS ORDERED: MAGNESIUM HYDROX 2400MG/30ML ORAL SUSPENSION 30 ML CUP PO PRN (15:15)
[2023-10-10] MEDS ORDERED: POLYETHYLENE GLYCOL (HEALTHYLAX) 3350 17 GM PACKET PO PRN (15:15)
[2023-10-10] MEDS ORDERED: NALOXONE (NARCAN) HCL 4 MG/0.1 ML SPRAY NS PRN (15:15)
[2023-10-10] MEDS ORDERED: guaiFENesin 600 MG TABLET.ER (FP) PO PRN (15:15)
[2023-10-10] MEDS ORDERED: NALOXONE HCL 0.4 MG/ML VIAL IVPUSH PRN (15:15)
[2023-10-10] MEDS ORDERED: ACETAMINOPHEN 325 MG TABLET (FP) PO PRN (15:15)
[2023-10-10] MEDS ORDERED: IBUPROFEN 400 MG TABLET (FP) PO PRN (15:15)
[2023-10-10] MEDS: hydrOXYzine PAMOATE 25 MG CAPSULE (FP) PO PRN (16:42)
[2023-10-10] MEDS: NICOTINE POLACRILEX 4 MG GUM BUC PRN (16:44)
[2023-10-10] MEDS: LACTULOSE 20 GM/30 ML UDC (FOR ORAL USE ONLY) PO SCH (17:02)
[2023-10-10] MEDS: QUEtiapine FUMARATE 50 MG TABLET PO ONE (21:16)
[2023-10-10] MEDS: THIAMINE 100 MG TABLET PO SCH (21:16)
[2023-10-10] MEDS: MELATONIN 5 MG TABLETS PO SCH (21:16)
[2023-10-11] MEDS: PRENATAL VITAMINS W/ FOLIC ACID TABLET (FP) PO SCH (10:12)
[2023-10-11] MEDS: NALTREXONE HCL 50 MG TABLET PO SCH (10:12)
[2023-10-11] MEDS: SERTRALINE HCL 50 MG TABLET (FP) PO SCH (12:03)
[2023-10-11] MEDS: QUEtiapine FUMARATE 50 MG TABLET PO SCH (23:24)
[2023-10-12] MEDS: cloNIDine HCL 0.1 MG TABLET PO ONE (07:20)
[2023-10-12] MEDS: NICOTINE POLACRILEX 4 MG LOZENGE BC PRN (07:22)
[2023-10-12] MEDS: METHOCARBAMOL 500 MG TABLET PO PRN (21:39)
[2023-10-12] MEDS: hydrOXYzine PAMOATE 25 MG CAPSULE (FP) PO PRN (21:39)
[2023-10-13] MEDS: cloNIDine HCL 0.1 MG TABLET PO ONE (21:48)
[2023-10-14] MEDS: amLODIPine BESYLATE 5 MG TABLET (FP) PO ONE (22:19)
[2023-10-15 07:05] VITALS: RESP 18
[2023-10-15] MEDS: propRANOLol HCL 10 MG TABLET PO PRN (21:45)
[2023-10-22] MEDS: LOPERAMIDE HCL 2 MG CAPSULE PO PRN (16:56)
[2023-10-23] MEDS: hydrOXYzine PAMOATE 25 MG CAPSULE (FP) PO PRN (15:31)
[2023-10-23] MEDS: GABAPENTIN 300 MG CAPSULE PO SCH (21:47)
[2023-10-23] MEDS: RIFAXIMIN 550 MG TABLET PO SCH (22:16)
[2023-10-25] MEDS: GABAPENTIN 300 MG CAPSULE PO SCH (06:17)
[2023-10-28] MEDS: GABAPENTIN 400 MG CAPSULE PO SCH (21:51)
[2023-10-31] MEDS: hydrOXYzine PAMOATE 50 MG CAPSULE (FP) PO PRN (18:56)
[2023-11-05] MEDS: NALTREXONE MICROSPHERES (VIVITROL) 380 MG DISP.SYRIN IM ONE (14:20)
[2023-11-06 07:00] VITALS: BP 115/63; PULSE 88; TEMP 97.6
== END 2023-11-06 10:51 | disposition home or self-care (01) | DRG 772 ==
LOC: YASAS 14:18 → Y5N 14:21
PROVIDERS: ADMIT Allergy & Immunology; ATTEND Psychiatry & Neurology Pain Medicine
PROC: HZ42ZZZ Group Counseling for Substance Abuse Treatment, Cognitive-Behavioral (ICD-10-PCS; principal; 2023-10-10)
DX: F10.20 Alcohol dependence, uncomplicated (principal); F10.24 Alcohol dependence with alcohol-induced mood disorder; F17.210 Nicotine dependence, cigarettes, uncomplicated; F10.282 Alcohol dependence with alcohol-induced sleep disorder; F10.280 Alcohol dependence with alcohol-induced anxiety disorder; F31.9 Bipolar disorder, unspecified; F39 Unspecified mood [affective] disorder; F41.8 Other specified anxiety disorders; G47.00 Insomnia, unspecified; I10 Essential (primary) hypertension; E72.20 Disorder of urea cycle metabolism, unspecified; B18.2 Chronic viral hepatitis C; Z59.01 Sheltered homelessness
CPT/HCPCS: 36415; 82140; 86803; J2315